=== PATIENT | male | born 1955 | race Caucasian/White ===

== ENCOUNTER 2019-10-21 17:53 | Emergency (ER) | payer BC ==
[2019-10-21] MEDS ORDERED: diphenhydrAMINE 50 MG/ML SDV IVPUSH ONE (18:17)
[2019-10-21] MEDS ORDERED: Lactated Ringers 1,000 ML IV ONE ×2 (18:17→19:15)
[2019-10-21] MEDS ORDERED: Sodium Chloride 0.9% 10 ML Syringe FLUSH PRN (18:17)
[2019-10-21] MEDS ORDERED: Ondansetron 4 MG/2 ML SDV IV ONE (18:17)
[2019-10-21 18:47] LABS: CHLORIDE,CL 101 mmol/L (98-107); SODIUM,NA 140 mmol/L (136-145)
[2019-10-21 18:48] LABS: ANION GAP 23.1 mmol/L (10-20)
--- NOTE | 2019-10-21 19:04 | CR ---
[id number] RAD/RAD Abd Flat and Upright 2V EXAM: RAD Abd Flat and Upright 2V INDICATION: QUESTION CONSTIPATION, NAUSEA, VOMITING. NO STOOL FOR COMPARISON: None. DISCUSSION: Unobstructed bowel gas pattern. No radiographically evident pneumoperitoneum. Moderate colonic stool burden. IMPRESSION: No evidence of a bowel obstruction. Rayshawn Cadena MD 10/21/19 4919 Thank you for allowing us to participate in the care of your patient.
[2019-10-21] MEDS ORDERED: Magnesium Sulfate/Water 2 GM in Premix Bag 1 BAG IV ONE (19:15)
[2019-10-21] MEDS ORDERED: Polyethylene Glycol 3350 Powder 17 GM Packet PO ONE (19:15)
[2019-10-21] MEDS ORDERED: LORazepam 2 MG/ML SDV IVPUSH ONE (19:19)
[2019-10-21] MEDS ORDERED: Bisacodyl 5 MG Tab PO ONE (21:44)
--- NOTE | 2019-10-21 21:44 | EDM.PDOC ---
ED HPI GENERAL MEDICAL PROBLEM - General Chief Complaint: Gastrointestinal Problem Time Seen by Provider: 10/21/19 18:52 Source of Information: Reports: Patient History Limitations: Reports: No Limitations - History of Present Illness INITIAL COMMENTS - FREE TEXT/NARRATIVE: Patient comes emergency department today with complaints of abdominal distention nausea and vomiting. Over the past few days he has noticed that his abdomen has been more distended and bloated sensation. He has not had a bowel movement in 4 days. Today he has had quite a bit of nausea and vomiting and he is thrown up multiple times this morning every 20 minutes he relates. He has been unable to take his quetiapine for his psychiatric disorder and is getting quite anxious. He denies any fever or chills. No chest pain or shortness of breath or difficulty breathing. No fever no chills. No real abdominal pain more distention and discomfort bloating sensation. No hematuria dysuria or urinary frequency. No flank pain. Had a very similar episode of this when he was constipated and ended up with recurrent nausea and vomiting. And he feels that is what is happening today. Lower Abdomen Pain Score (Numeric/FACES): 6 - Related Data Allergies Allergy/AdvReac Type Severity Reaction Status Date / Time No Known Allergies Allergy Verified 10/21/19 18:30 Home Meds: Home Meds ClonazePAM [KlonoPIN] 0.5 mg PO BEDTIME 10/21/19 [History] Magnesium Oxide 400 mg PO DAILY #5 tab 10/21/19 [Rx] Metoprolol Succinate 100 mg PO DAILY 10/21/19 [History] Mirtazapine 30 mg PO BEDTIME 10/21/19 [History] Omeprazole 20 mg PO DAILY 10/21/19 [History] QUEtiapine [SEROquel] 100 mg PO ASDIRECTED 10/21/19 [History] Simvastatin 20 mg PO DAILY 10/21/19 [History] Tamsulosin [Tamsulosin 24 Hr] 0.4 mg PO DAILY 10/21/19 [History] Past Medical History - Past Health History Medical/Surgical History: Denies Medical/Surgical History Cardiovascular History: Reports: High Cholesterol, Hypertension Gastrointestinal History: Reports: GERD Psychiatric History: Reports: Anxiety, Depression Social & Family History - Tobacco Use Smoking Status *Q: Current Every Day Smoker Years of Tobacco use: 40 Packs/Tins Daily: 1 ED ROS GENERAL - Review of Systems Review Of Systems: Comprehensive ROS is negative, except as noted in HPI. ED EXAM, GI/ABD - Physical Exam Exam: See Below Exam Limited By: No Limitations General Appearance: Alert, WD/WN, Anxious Eyes: Bilateral: EOMI Ears: Normal External Exam, Normal TMs Nose: Normal Inspection, Normal Mucosa Throat/Mouth: Normal Inspection, Normal Lips, Normal Teeth, Normal Oropharynx Head: Atraumatic, Normocephalic Neck: Normal Inspection, Supple, Non-Tender. No: Lymphadenopathy (L), Lymphadenopathy (R) Respiratory/Chest: No Respiratory Distress, Lungs Clear, No Accessory Muscle Use , Chest Non-Tender Cardiovascular: Normal Peripheral Pulses, Regular Rate, Rhythm GI/Abdominal Exam: Normal Bowel Sounds, Soft, Non-Tender, Distended (minimally. dullness to percussion throughout the abd. ) Back Exam: Normal Inspection, Full Range of Motion Extremities: Normal Inspection, Non-Tender, Normal Capillary Refill Neurological: Alert, Oriented, Normal Cognition, No Motor/Sensory Deficits Psychiatric: Normal Affect, Normal Mood Skin Exam: Warm, Dry, Intact, Normal Color Course - Vital Signs Last Recorded V/S: Last Vital Signs Temp 37.4 C 10/21/19 17:55 Pulse 67 10/21/19 20:33 Resp 16 10/21/19 20:33 BP 123/71 10/21/19 20:33 Pulse Ox 96 10/21/19 20:33 - Orders/Labs/Meds Orders: Active Orders 24 hr Category Date Time Status Sodium Chloride 0.9% [Saline Flush] Med 10/21/19 18:17 Active 10 ml FLUSH ASDIRECTED PRN Peripheral IV Insertion Adult [OM.PC] Stat Oth 10/21/19 18:16 Ordered Medication Orders Sodium Chloride (Saline Flush) 10 ml FLUSH ASDIRECTED PRN PRN Reason: Keep Vein Open Labs: Laboratory Tests 10/21/19 10/21/19 Range/Units 18:05 18:05 WBC 10.4 H (4.0-10.0) x10^3/uL RBC 5.37 (4.5-6.0) x10^6/uL Hgb 16.8 (14.0-18.0) g/dL Hct 47.6 (40.0-52.0) % MCV 88.6 (78.0-93.0) fL MCH 31.3 (26.0-32.0) pg MCHC 35.3 (32.0-36.0) g/dL RDW Coeff of [place] 14.0 (10.0-15.0) % Plt Count 283 (130-400) x10^3/uL Neut % (Auto) 88.0 H (50.0-80.0) % Lymph % (Auto) 8.5 L (25.0-50.0) % [place] % (Auto) 3.3 (2.0-11.0) % Eos % (Auto) 0.0 (0.0-4.0) % Baso % (Auto) 0.2 (0.2-1.2) % Sodium 140 (136-145) mmol/L Potassium 4.1 (3.5-5.1) mmol/L Chloride 101 (98-107) mmol/L Carbon Dioxide 20 L (21-32) mmol/L Anion Gap 23.1 H (10-20) mmol/L BUN 20 H (7-18) mg/dL Creatinine 1.2 (0.70-1.30) mg/dL Est Cr Clr Drug Dosing TNP Estimated GFR (MDRD) > 60 Glucose 141 H (74-106) mg/dL Calcium 9.4 (8.5-10.1) mg/dL Corrected Calcium 9.08 (8.5-10.1) mg/dL Magnesium 1.6 L (1.8-2.4) mg/dL Total Bilirubin 0.6 (0.2-1.0) mg/dL AST 20 (15-37) U/L ALT 31 (16-63) U/L Alkaline Phosphatase 114 (46-116) U/L C-Reactive Protein 0.7 (<=0.9) mg/dL Total Protein 8.3 H (6.4-8.2) g/dL Albumin 4.4 (3.4-5.0) g/dL Globulin 3.9 Albumin/Globulin Ratio 1.13 Lipase 221 (73-393) U/L Meds: Medications Generic Name Dose Route Start Last Admin Trade Name Freq PRN Reason Stop Dose Admin Sodium Chloride 10 ml 10/21/19 18:17 Saline Flush FLUSH ASDIRECTED PRN Keep Vein Open Discontinued Medications Generic Name Dose Route Start Last Admin Trade Name Freq PRN Reason Stop Dose Admin Bisacodyl 5 mg 10/21/19 21:44 10/21/19 21:53 Dulcolax PO 10/21/19 21:45 5 mg ONETIME ONE Administration Diphenhydramine HCl 50 mg 10/21/19 18:17 10/21/19 18:45 Benadryl IVPUSH 10/21/19 18:18 50 mg ONETIME ONE Administration Lactated Ringer's 1,000 mls @ 999 mls/hr 10/21/19 18:17 10/21/19 18:42 Ringers, Lactated IV 10/21/19 19:17 999 mls/hr ONETIME ONE Administration Lactated Ringer's 1,000 mls @ 500 mls/hr 10/21/19 19:15 10/21/19 19:34 Ringers, Lactated IV 10/21/19 21:14 500 mls/hr ONETIME ONE Administration Magnesium Sulfate 2 gm/ Premix 50 mls @ 25 mls/hr 10/21/19 19:15 10/21/19 19: 42 IV 10/21/19 21:14 25 mls/hr ONETIME ONE Administration Lorazepam 1 mg 10/21/19 19:19 10/21/19 19:30 Ativan IVPUSH 10/21/19 19:20 1 mg STAT ONE Administration Ondansetron HCl 4 mg 10/21/19 18:17 10/21/19 18:43 Zofran IV 10/21/19 18:18 4 mg ONETIME ONE Administration Ondansetron HCl 1 packet 10/21/19 21:49 10/21/19 21:53 Take Home: Ondansetron Odt 4 Mg, 2 Tab Pack PO 10/21/19 21:50 1 packet ONETIME ONE Administration Polyethylene Glycol 34 gm 10/21/19 19:15 10/21/19 19:50 Miralax PO 10/21/19 19:16 34 gm ONETIME ONE Administration - Re-Assessments/Exams Free Text/Narrative Re-Assessment/Exam: 10/21/19 22:49 IV of LR 1 L wide open. Benadryl and Zofran for nausea and diarrhea. X-ray of the abdomen per radiology shows no evidence of bowel obstruction nonobstructive bowel gas pattern. No radiographic evidence of pneumoperitoneum. Moderate colonic stool burden. The patients as he was resolved with the above therapy as well as his abdominal bloating. He still was quite anxious and he was given Ativan with improvement of his symptoms. His labs are pretty unremarkable. His creatinine is at 1.2 most likely due to dehydration. His magnesium is 1.5. He was given a second liter of normal saline at 500 mils an hour. He was also given 2 g of magnesium sulfate. His nausea and vomiting is completely resolved his valerio distention is improved. He was also given a double dose of MiraLAX. And a dose of bisacodyl. Anxiety is resolved he feels much better. Will him go home we will send him home with some Zofran as well. And some home treatment for his constipation he is comfortable with this plan his questions. 10/21/19 22:52 Departure - Departure Time of Disposition: 21:35 Disposition: Home, Self-Care 01 Clinical Impression: Hypomagnesemia Constipation Qualifiers: Constipation type: unspecified constipation type Qualified Code(s): K59.00 - Constipation, unspecified Nausea & vomiting Qualifiers: Vomiting Intractability: unspecified - Discharge Information Prescriptions: Magnesium Oxide 400 mg PO DAILY #5 tab Instructions: Constipation, Adult, [id number], Nausea and Vomiting, Adult, [id number], Dehydration, Elderly, [id number] Referrals: Roman Holguin DO [Primary Care Provider] - Forms: ED Department Discharge Additional Instructions: Push oral fluids as much as possible over the next few days. Miralax, 1 capful with a large glass of water every day, increase by 1 capful every 2 days. Day 3 2 capfuls, day 5 3 capfuls etc until easy smooth bowel movement. Magnesium oxide 400mg by mouth every day for the next 5 days. RX sent to the pharmacy. Recheck magnesium with PCP in the next 5 days if sooner if not improving or worse. Slowly advance diet as tolerated. Return to the ED if new or worsening symptoms. Sepsis Event Note - Evaluation Sepsis Screening Result: No Definite Risk - Focused Exam Vital Signs: Vital Signs Temp Pulse Resp BP Pulse Ox 10/21/19 20:33 67 16 123/71 96 10/21/19 17:55 37.4 C 120 H 20 125/87 97 Date Exam was Performed: 10/21/19 Time Exam was Performed: 22:44 - My Orders Last 24 Hours: My Active Orders 10/21/19 18:16 Peripheral IV Insertion Adult [OM.PC] Stat 10/21/19 18:17 Sodium Chloride 0.9% [Saline Flush] 10 ml FLUSH ASDIRECTED PRN - Assessment/Plan Last 24 Hours: My Active Orders 10/21/19 18:16 Peripheral IV Insertion Adult [OM.PC] Stat 10/21/19 18:17 Sodium Chloride 0.9% [Saline Flush] 10 ml FLUSH ASDIRECTED PRN Assessment:: Nausea vomiting most likely from constipation. constipation. Plan: Push oral fluids as much as possible over the next few days. Miralax, 1 capful with a large glass of water every day, increase by 1 capful every 2 days. Day 3 2 capfuls, day 5 3 capfuls etc until easy smooth bowel movement. Magnesium oxide 400mg by mouth every day for the next 5 days. RX sent to the pharmacy. Recheck magnesium with PCP in the next 5 days if sooner if not improving or worse. Slowly advance diet as tolerated. Return to the ED if new or worsening symptoms.
[2019-10-21] MEDS ORDERED: Take Home: Ondansetron 4 MG Tab.DIS, 2 Tab Pack PO ONE (21:49)
== END 2019-10-21 22:05 | disposition home or self-care (01) ==
LOC: VM.ED 17:53
DX: K59.00 Constipation, unspecified (principal); E83.42 Hypomagnesemia; F17.210 Nicotine dependence, cigarettes, uncomplicated; E78.00 Pure hypercholesterolemia, unspecified; I10 Essential (primary) hypertension; K21.9 Gastro-esophageal reflux disease without esophagitis; F41.9 Anxiety disorder, unspecified; F32.9 Major depressive disorder, single episode, unspecified; Z79.899 Other long term (current) drug therapy
CPT/HCPCS: 74019; 80053; 83690; 83735; 85025; 86140; 96365; 96366; 96375; 99284; A9270; J1200; J2060; J2405; J3475; J7120

== ENCOUNTER 2019-10-22 08:46 | Emergency (ER) | payer BC ==
[2019-10-22] MEDS ORDERED: diphenhydrAMINE 50 MG/ML SDV IVPUSH ONE (09:10)
[2019-10-22] MEDS ORDERED: Sodium Chloride 0.9% 10 ML Syringe FLUSH PRN (09:10)
[2019-10-22] MEDS ORDERED: Ketorolac 30 MG/ML SDV IVPUSH ONE (09:10)
[2019-10-22] MEDS ORDERED: Ondansetron 4 MG/2 ML SDV IV ONE (09:10)
[2019-10-22] MEDS ORDERED: Lactated Ringers 1,000 ML IV ONE (09:10)
--- NOTE | 2019-10-22 09:12 | EDM.PDOC ---
ED HPI GENERAL MEDICAL PROBLEM - General Time Seen by Provider: 10/22/19 09:05 Source of Information: Reports: Patient History Limitations: Reports: No Limitations - History of Present Illness INITIAL COMMENTS - FREE TEXT/NARRATIVE: Patient comes emergency department today with complaints of nausea vomiting and abdominal pain. This patient was seen by myself last night for very similar symptomology. Please see my note from last night as well. Diagnosed with constipation nausea and vomiting which she has had before. He slept well throughout the night and was really asymptomatic. He has not had a bowel movement yet. He woke up this morning he felt pretty good and suddenly he had increased abdominal pain cramping and distention nausea and vomiting at home. No fever no chills. He has been able to keep down his medications. He has no chest pain or shortness of breath or difficulty breathing. No fever no chills. He has been voiding normally. No hematuria dysuria or urinary frequency. - Related Data Allergies Allergy/AdvReac Type Severity Reaction Status Date / Time No Known Allergies Allergy Verified 10/21/19 18:30 Home Meds: Home Meds ClonazePAM [KlonoPIN] 0.5 mg PO BEDTIME 10/21/19 [History] Magnesium Oxide 400 mg PO DAILY #5 tab 10/21/19 [Rx] Metoprolol Succinate 100 mg PO DAILY 10/21/19 [History] Mirtazapine 30 mg PO BEDTIME 10/21/19 [History] Omeprazole 20 mg PO DAILY 10/21/19 [History] QUEtiapine [SEROquel] 100 mg PO ASDIRECTED 10/21/19 [History] Simvastatin 20 mg PO DAILY 10/21/19 [History] Tamsulosin [Tamsulosin 24 Hr] 0.4 mg PO DAILY 10/21/19 [History] Past Medical History - Past Health History Medical/Surgical History: Denies Medical/Surgical History Cardiovascular History: Reports: High Cholesterol, Hypertension Gastrointestinal History: Reports: GERD Psychiatric History: Reports: Anxiety, Depression ED ROS GENERAL - Review of Systems Review Of Systems: Comprehensive ROS is negative, except as noted in HPI. ED EXAM, GI/ABD - Physical Exam Exam: See Below Text/Narrative:: He is rolling about the bed moaning Exam Limited By: No Limitations General Appearance: Alert, Mild Distress Eyes: Bilateral: EOMI Throat/Mouth: Normal Inspection, Normal Lips, Normal Oropharynx Head: Atraumatic, Normocephalic Neck: Normal Inspection, Supple, Non-Tender Respiratory/Chest: No Respiratory Distress, Lungs Clear, Normal Breath Sounds, No Accessory Muscle Use Cardiovascular: Normal Peripheral Pulses, Regular Rate, Rhythm GI/Abdominal Exam: Soft, No Organomegaly, Tender (Generalized tenderness without rebound guarding or rigidity. Minimally distended. Dullness to percussion throughout the abdomen). No: Normal Bowel Sounds (Decreased bowel sounds throughout) Back Exam: Normal Inspection, Full Range of Motion Extremities: Normal Inspection, Normal Range of Motion, No Pedal Edema, Normal Capillary Refill Neurological: Alert, Oriented, Normal Cognition, No Motor/Sensory Deficits Psychiatric: Normal Affect Skin Exam: Warm, Dry, Intact, Normal Color Course - Orders/Labs/Meds Orders: Active Orders 24 hr Category Date Time Status Enema [RC] ASDIRECTED Care 10/22/19 09:31 Active UA RFX LAYTON AND CULT IF INDIC [URIN] Stat Lab 10/22/19 09:09 Ordered Sodium Chloride 0.9% [Saline Flush] Med 10/22/19 09:10 Active 10 ml FLUSH ASDIRECTED PRN polyethylene glycoL 3350 [MiraLAX] Med 10/22/19 13:36 Once 34 gm PO ONETIME ONE Peripheral IV Insertion Adult [OM.PC] Stat Oth 10/22/19 09:09 Ordered Medication Orders Polyethylene Glycol (Miralax) 34 gm PO ONETIME ONE Stop: 10/22/19 13:37 Sodium Chloride (Saline Flush) 10 ml FLUSH ASDIRECTED PRN PRN Reason: Keep Vein Open Labs: Laboratory Tests 10/22/19 10/22/19 10/22/19 Range/Units 09:27 09:27 09:27 WBC 15.9 H (4.0-10.0) x10^3/uL RBC 5.07 (4.5-6.0) x10^6/uL Hgb 16.0 (14.0-18.0) g/dL Hct 45.6 (40.0-52.0) % MCV 89.9 (78.0-93.0) fL MCH 31.6 (26.0-32.0) pg MCHC 35.1 (32.0-36.0) g/dL RDW Coeff of [place] 14.3 (10.0-15.0) % Plt Count 260 (130-400) x10^3/uL Neut % (Auto) 79.7 (50.0-80.0) % Lymph % (Auto) 10.5 L (25.0-50.0) % [place] % (Auto) 9.2 (2.0-11.0) % Eos % (Auto) 0.4 (0.0-4.0) % Baso % (Auto) 0.2 (0.2-1.2) % Sodium 144 (136-145) mmol/L Potassium 3.9 (3.5-5.1) mmol/L Chloride 106 (98-107) mmol/L Carbon Dioxide 22 (21-32) mmol/L Anion Gap 19.9 (10-20) mmol/L BUN 16 (7-18) mg/dL Creatinine 1.3 (0.70-1.30) mg/dL Est Cr Clr Drug Dosing TNP Estimated GFR (MDRD) 56 Glucose 128 H (74-106) mg/dL Lactic Acid 2.3 H* (0.4-2.0) mmol/L Calcium 9.0 (8.5-10.1) mg/dL Corrected Calcium 9.08 (8.5-10.1) mg/dL Total Bilirubin 0.6 (0.2-1.0) mg/dL AST 23 (15-37) U/L ALT 29 (16-63) U/L Alkaline Phosphatase 101 (46-116) U/L C-Reactive Protein 0.6 (<=0.9) mg/dL Total Protein 7.5 (6.4-8.2) g/dL Albumin 3.9 (3.4-5.0) g/dL Globulin 3.6 Albumin/Globulin Ratio 1.08 Meds: Medications Generic Name Dose Route Start Last Admin Trade Name Freq PRN Reason Stop Dose Admin Polyethylene Glycol 34 gm 10/22/19 13:36 Miralax PO 10/22/19 13:37 ONETIME ONE Sodium Chloride 10 ml 10/22/19 09:10 Saline Flush FLUSH ASDIRECTED PRN Keep Vein Open Discontinued Medications Generic Name Dose Route Start Last Admin Trade Name Freq PRN Reason Stop Dose Admin Diphenhydramine HCl 50 mg 10/22/19 09:10 10/22/19 09:30 Benadryl IVPUSH 10/22/19 09:11 50 mg ONETIME ONE Administration Hydromorphone HCl 1 mg 10/22/19 12:07 10/22/19 12:13 Dilaudid IVPUSH 10/22/19 12:08 1 mg ONETIME ONE Administration Lactated Ringer's 1,000 mls @ 999 mls/hr 10/22/19 09:10 10/22/19 09:40 Ringers, Lactated IV 10/22/19 10:10 999 mls/hr ONETIME ONE Administration Iopamidol 100 ml 10/22/19 12:37 10/22/19 12:48 Isovue-300 (61%) IVPUSH 10/22/19 12:38 100 ml ONETIME ONE Administration Ketorolac Tromethamine 30 mg 10/22/19 09:10 10/22/19 09:38 Toradol IVPUSH 10/22/19 09:11 30 mg ONETIME ONE Administration Magnesium Hydroxide 30 ml 10/22/19 11:17 10/22/19 11:25 Milk Of Magnesia PO 10/22/19 11:18 30 ml ONETIME ONE Administration Ondansetron HCl 4 mg 10/22/19 09:10 10/22/19 09:35 Zofran IV 10/22/19 09:11 4 mg ONETIME ONE Administration Ondansetron HCl 4 mg 10/22/19 12:07 10/22/19 12:14 Zofran IVPUSH 10/22/19 12:08 4 mg ONETIME ONE Administration - Radiology Interpretation Free Text/Narrative:: Because the patient's pain worsened while he was in the emergency department and we had no results with an enema. CT scan abdomen pelvis. Per radiology no acute findings. - Re-Assessments/Exams Free Text/Narrative Re-Assessment/Exam: 10/22/19 13:38 Patient was initially given IV hydration as well as Benadryl Zofran for pain. Attempted a soapsuds enema without any results. He was also given milk of mag and warm prune juice orally. Labs once again are fairly unremarkable. Patient had increasing pain nausea and vomiting while in the emergency department. He was given Zofran and Dilaudid. We completed a CT scan of the abdomen which was negative. Following the CT scan the patient did start moving his bowels and he feels much better. His nausea and vomiting resolved. HE feels much better. His stomach is not as distended. Bowel sounds are more prominent now. Will give another dose fo Miralax and also some Lactulose. Continue to push fluids orally and the miralax. The patient was comfortable with this plan and his questions answered. 10/22/19 13:47 Departure - Departure Time of Disposition: 13:44 Disposition: Home, Self-Care 01 Clinical Impression: Constipation Qualifiers: Constipation type: unspecified constipation type Qualified Code(s): K59.00 - Constipation, unspecified Nausea & vomiting Qualifiers: Vomiting Intractability: unspecified - Discharge Information Instructions: Constipation, Adult, [id number], Nausea and Vomiting, Adult, [id number] Referrals: Roman Holguin DO [Primary Care Provider] - Additional Instructions: Continue to push fluids tonight. Take another 2 capfulls of miralax tonight after dinner. Then 2 capfuls daily until easy smooth bowel movement. Return if new or worsening symptoms. Follow up with PCP in the next 4-6 days if not improving sooner if worse. Sepsis Event Note - Focused Exam Date Exam was Performed: 10/22/19 Time Exam was Performed: 13:37 - My Orders Last 24 Hours: My Active Orders 10/22/19 09:09 UA RFX LAYTON AND CULT IF INDIC [URIN] Stat Peripheral IV Insertion Adult [OM.PC] Stat 10/22/19 09:10 Sodium Chloride 0.9% [Saline Flush] 10 ml FLUSH ASDIRECTED PRN 10/22/19 09:31 Enema [RC] ASDIRECTED 10/22/19 13:36 polyethylene glycoL 3350 [MiraLAX] 34 gm PO ONETIME ONE - Assessment/Plan Last 24 Hours: My Active Orders 10/22/19 09:09 UA RFX LAYTON AND CULT IF INDIC [URIN] Stat Peripheral IV Insertion Adult [OM.PC] Stat 10/22/19 09:10 Sodium Chloride 0.9% [Saline Flush] 10 ml FLUSH ASDIRECTED PRN 10/22/19 09:31 Enema [RC] ASDIRECTED 10/22/19 13:36 polyethylene glycoL 3350 [MiraLAX] 34 gm PO ONETIME ONE Assessment:: Constipation N/D Plan: Continue to push fluids tonight. Take another 2 capfulls of miralax tonight after dinner. Then 2 capfuls daily until easy smooth bowel movement. Return if new or worsening symptoms. Follow up with PCP in the next 4-6 days if not improving sooner if worse.
[2019-10-22 09:53] LABS: CHLORIDE,CL 106 mmol/L (98-107); SODIUM,NA 144 mmol/L (136-145)
[2019-10-22 09:54] LABS: ANION GAP 19.9 mmol/L (10-20)
[2019-10-22] MEDS ORDERED: Magnesium Hydroxide 400 MG/5 ML Susp 30 ML Cup PO ONE (11:17)
[2019-10-22] MEDS ORDERED: Ondansetron 4 MG/2 ML SDV IVPUSH ONE (12:07)
[2019-10-22] MEDS ORDERED: HYDROmorphone 1 MG/ML Syringe IVPUSH ONE (12:07)
[2019-10-22] MEDS ORDERED: Iopamidol 612 MG/ML 100 ML Bottle IVPUSH ONE (12:37)
--- NOTE | 2019-10-22 13:30 | CT ---
[id number] CT/CT Abdomen Pelvis W IV EXAM: ABDOMEN AND PELVIS CT WITH CONTRAST INDICATION: SEVERE ABDOMEN PAIN NOT IMPROVED AFTER LAST VISIT. COMPARISON: None. DISCUSSION: There is atherosclerotic plaque scattered throughout the aorta and its major branches. Significant stenosis is suggested of the left common iliac artery which could be further evaluated with CT angiogram if there is clinical evidence of stenosis. Small fat-containing bilateral inguinal hernias. Scattered colonic diverticula without evidence of diverticulitis. There are multiple fluid-filled mildly ectatic small bowel loops likely related to recent fluid ingestion as there is fluid within the stomach. No transition point or other findings to suggest bowel obstruction. The left adrenal gland contains a couple of nodules which are indeterminate by density the largest 23 x 18 mm. Small sliding type hiatus hernia. The liver, gallbladder, spleen, pancreas, right adrenal gland, and both kidneys are normal in appearance. The appendix is not definitely seen, but there are no changes to suggest acute appendicitis. IMPRESSION: 1. No acute findings. Van Bray MD 10/22/19 0929 Thank you for allowing us to participate in the care of your patient.
[2019-10-22] MEDS ORDERED: Polyethylene Glycol 3350 Powder 17 GM Packet PO ONE (13:36)
[2019-10-22] MEDS ORDERED: Lactulose Soln 10 GM/15 ML 30 ML UD Cup PO ONE (13:44)
[2019-10-22] MEDS ORDERED: Lactulose Soln 10 GM/15 ML 15 ML UD Cup PO ONE (14:04)
== END 2019-10-22 14:10 | disposition home or self-care (01) ==
LOC: VM.ED 08:46
DX: K59.00 Constipation, unspecified (principal); R11.2 Nausea with vomiting, unspecified; I10 Essential (primary) hypertension; E78.00 Pure hypercholesterolemia, unspecified; F41.9 Anxiety disorder, unspecified; F32.9 Major depressive disorder, single episode, unspecified; K21.9 Gastro-esophageal reflux disease without esophagitis; Z79.899 Other long term (current) drug therapy
CPT/HCPCS: 36415; 74177; 80053; 83605; 85025; 86140; 96361; 96374; 96375; 96376; 99284-25; A9270-GY; J1170; J1200; J1885; J2405; J7120; Q9967

== ENCOUNTER 2019-10-24 12:00 | Emergency (ER) | payer BC ==
[2019-10-24] MEDS ORDERED: Sodium Chloride 0.9% 1,000 ML IV ONE ×2 (12:14→13:18)
[2019-10-24] MEDS ORDERED: Ondansetron 4 MG/2 ML SDV IVPUSH ONE (12:14)
[2019-10-24] MEDS ORDERED: LORazepam 2 MG/ML SDV IVPUSH ONE ×3 (12:15→15:39)
[2019-10-24] MEDS: Sodium Chloride 0.9% 10 ML Syringe FLUSH PRN ×2 (12:22→13:54)
--- NOTE | 2019-10-24 12:34 | EDM.PDOC ---
ED HPI GENERAL MEDICAL PROBLEM - General Chief Complaint: Abdominal Pain Time Seen by Provider: 10/24/19 12:15 Source of Information: Reports: Patient History Limitations: Reports: No Limitations - History of Present Illness INITIAL COMMENTS - FREE TEXT/NARRATIVE: Pt. presents to ER with complaints of nausea x 2 and one loose stool today. Pt. was seen in ER earlier this week by BENJAMIN Gao with similar symptoms. Pt. underwent plain film radiographs of the abdomen and pelvis as well as CT of the abdomen and pelvis. There was no evidence of perforation, obstruction or other pathology, other than constipation. He has been started on miralax and now his stools are much more loose. Pt. required numerous antiemetics, ativan, dilaudid and fluids on his previous visits. He states that he is on seroquel and he feels that a large component of his symptoms have to do with anxiety and not being able to take his seroquel today. Pt. denies any fever or chills. No chest pain or shortness of breath. No rashes. Denies any blood in his stool. He has not been experiencing any cough of congestion. No flank pain. No dysuria. Pt. states that he is a frequent marijuana user. He states that he uses this to control his colitis symptoms and states that it improved his appetite and helps with his nausea. Pt. states that he has had problems with severe nausea and vomiting in the past, and states that he has been seen by GI for this, but has never been formally diagnosed with a cause. Pt. states that he has "scopes" every 2 years and is followed by gastroenterology. Onset: Today Location: Reports: Abdomen - Related Data Allergies Allergy/AdvReac Type Severity Reaction Status Date / Time No Known Allergies Allergy Verified 10/24/19 12:04 Home Meds: Home Meds ClonazePAM [KlonoPIN] 0.5 mg PO BEDTIME 10/21/19 [History] Magnesium Oxide 400 mg PO DAILY #5 tab 10/21/19 [Rx] Metoprolol Succinate 100 mg PO DAILY 10/21/19 [History] Mirtazapine 30 mg PO BEDTIME 10/21/19 [History] Omeprazole 20 mg PO DAILY 10/21/19 [History] QUEtiapine [SEROquel] 100 mg PO ASDIRECTED 10/21/19 [History] Simvastatin 20 mg PO DAILY 10/21/19 [History] Tamsulosin [Tamsulosin 24 Hr] 0.4 mg PO DAILY 10/21/19 [History] Past Medical History - Past Health History Medical/Surgical History: Denies Medical/Surgical History Cardiovascular History: Reports: High Cholesterol, Hypertension Gastrointestinal History: Reports: GERD Psychiatric History: Reports: Anxiety, Depression ED ROS GENERAL - Review of Systems Review Of Systems: See Below Constitutional: Reports: No Symptoms HEENT: Reports: No Symptoms Respiratory: Reports: No Symptoms Cardiovascular: Reports: No Symptoms Endocrine: Reports: No Symptoms GI/Abdominal: Reports: Abdominal Pain, Nausea, Vomiting : Reports: No Symptoms Musculoskeletal: Reports: No Symptoms Skin: Reports: No Symptoms Neurological: Reports: No Symptoms Psychiatric: Reports: Agitation, Anxiety, Depression Hematologic/Lymphatic: Reports: No Symptoms Immunologic: Reports: No Symptoms ED EXAM, GENERAL - Physical Exam Exam: See Below Exam Limited By: No Limitations General Appearance: Alert, WD/WN, No Apparent Distress Eye Exam: Bilateral Eye: EOMI, PERRL Nose: Normal Inspection, Normal Mucosa, No Blood Throat/Mouth: Normal Inspection, Normal Lips, Normal Teeth, Normal Gums, Normal Oropharynx, Normal Voice, No Airway Compromise Head: Atraumatic, Normocephalic Neck: Normal Inspection, Supple, Non-Tender, Full Range of Motion Respiratory/Chest: No Respiratory Distress, Lungs Clear, Normal Breath Sounds, No Accessory Muscle Use, Chest Non-Tender Cardiovascular: Normal Peripheral Pulses, Regular Rate, Rhythm, No Edema, No Gallop, No JVD, No Murmur, No Rub GI/Abdominal: Soft, Non-Tender, No Organomegaly, No Distention, No Mass (Male) Exam: Deferred Rectal (Males) Exam: Deferred Back Exam: Normal Inspection, Full Range of Motion Extremities: Normal Inspection, Normal Range of Motion, Non-Tender, No Pedal Edema, Normal Capillary Refill Neurological: Alert, Oriented, CN II-XII Intact, Normal Cognition, Normal Gait, Normal Reflexes, No Motor/Sensory Deficits Psychiatric: Anxious, Tearful Skin Exam: Warm, Dry, Intact, Normal Color, No Rash Lymphatic: No Adenopathy Course - Vital Signs Last Recorded V/S: Last Vital Signs Temp 35.5 C L 10/24/19 12:06 Pulse 64 10/24/19 17:18 Resp 14 10/24/19 17:18 BP 178/84 H 10/24/19 17:18 Pulse Ox 96 10/24/19 17:18 - Orders/Labs/Meds Orders: Active Orders 24 hr Category Date Time Status UA W/MICROSCOPIC [URIN] Stat Lab 10/24/19 14:07 Results Sodium Chloride 0.9% [Saline Flush] Med 10/24/19 12:14 Active 10 ml FLUSH ASDIRECTED PRN Peripheral IV Insertion Adult [OM.PC] Routine Oth 10/24/19 12:15 Ordered Medication Orders Sodium Chloride (Saline Flush) 10 ml FLUSH ASDIRECTED PRN PRN Reason: Keep Vein Open Last Admin: 10/24/19 13:54 Dose: 10 ml Admin: 10/24/19 12:22 Dose: 10 ml Labs: Laboratory Tests 10/24/19 10/24/19 10/24/19 Range/Units 12:25 12:25 12:25 WBC 14.1 H (4.0-10.0) x10^3/uL RBC 5.23 (4.5-6.0) x10^6/uL Hgb 16.6 (14.0-18.0) g/dL Hct 47.1 (40.0-52.0) % MCV 90.1 (78.0-93.0) fL MCH 31.7 (26.0-32.0) pg MCHC 35.2 (32.0-36.0) g/dL RDW Coeff of Sawyer 13.8 (10.0-15.0) % Plt Count 276 (130-400) x10^3/uL Neut % (Auto) 71.2 (50.0-80.0) % Lymph % (Auto) 16.3 L (25.0-50.0) % Sanders % (Auto) 11.2 H (2.0-11.0) % Eos % (Auto) 1.0 (0.0-4.0) % Baso % (Auto) 0.3 (0.2-1.2) % PT 10.5 (10.0-12.8) SEC INR 0.9 L (2.0-3.5) Sodium 141 (136-145) mmol/L Potassium 4.1 (3.5-5.1) mmol/L Chloride 103 (98-107) mmol/L Carbon Dioxide 24 (21-32) mmol/L Anion Gap 18.1 (10-20) mmol/L BUN 16 (7-18) mg/dL Creatinine 1.3 (0.70-1.30) mg/dL Est Cr Clr Drug Dosing 49.94 mL/min Estimated GFR (MDRD) 56 Glucose 106 (74-106) mg/dL Calcium 9.0 (8.5-10.1) mg/dL Corrected Calcium 9.00 (8.5-10.1) mg/dL Total Bilirubin 0.6 (0.2-1.0) mg/dL AST 28 (15-37) U/L ALT 32 (16-63) U/L Alkaline Phosphatase 103 (46-116) U/L C-Reactive Protein 0.6 (<=0.9) mg/dL Total Protein 7.6 (6.4-8.2) g/dL Albumin 4.0 (3.4-5.0) g/dL Globulin 3.6 Albumin/Globulin Ratio 1.11 Amylase 66 (25-115) U/L Lipase 293 (73-393) U/L Urine Color (YELLOW) Urine Appearance (CLEAR) Urine pH (5.0-8.0) Ur Specific [place] Urine Protein (NEGATIVE) mg/dL Urine Glucose (UA) (NEGATIVE) mg/dL Urine Ketones (NEGATIVE) mg/dL Urine Occult Blood (NEGATIVE) Urine Nitrite (NEGATIVE) Urine Bilirubin (NEGATIVE) Urine Urobilinogen (0.2) EU/dL Ur Leukocyte Esterase (NEGATIVE) Urine RBC (NOT SEEN) /HPF Urine WBC (NOT SEEN) /HPF Ur Squamous Epith Cells (NEGATIVE) /HPF Urine Bacteria (NEGATIVE) /HPF Urine Mucus (NEGATIVE) /LPF Urine Opiates Screen (NEAGTIVE) Ur Buprenorphine Scrn (NEGATIVE) Ur Oxycodone Screen (NEGATIVE) Ur EDDP (Meth Metab) (NEGATIVE) Urine Methadone Screen (NEGATIVE) Ur Barbiturates Screen (NEGATIVE) Ur Tricyclics Screen (NEGATIVE) Ur Phencyclidine Scrn (NEGATIVE) Ur Amphetamine Screen (NEGATIVE) U Methamphetamines Scrn (NEGATIVE) Urine MDMA Screen (NEGATIVE) U Benzodiazepines Scrn (NEGATIVE) U Cocaine Metab Screen (NEGATIVE) U Marijuana (THC) Screen (NEGATIVE) 10/24/19 10/24/19 Range/Units 14:07 14:07 WBC (4.0-10.0) x10^3/uL RBC (4.5-6.0) x10^6/uL Hgb (14.0-18.0) g/dL Hct (40.0-52.0) % MCV (78.0-93.0) fL MCH (26.0-32.0) pg MCHC (32.0-36.0) g/dL RDW Coeff of Sawyer (10.0-15.0) % Plt Count (130-400) x10^3/uL Neut % (Auto) (50.0-80.0) % Lymph % (Auto) (25.0-50.0) % Sanders % (Auto) (2.0-11.0) % Eos % (Auto) (0.0-4.0) % Baso % (Auto) (0.2-1.2) % PT (10.0-12.8) SEC INR (2.0-3.5) Sodium (136-145) mmol/L Potassium (3.5-5.1) mmol/L Chloride (98-107) mmol/L Carbon Dioxide (21-32) mmol/L Anion Gap (10-20) mmol/L BUN (7-18) mg/dL Creatinine (0.70-1.30) mg/dL Est Cr Clr Drug Dosing mL/min Estimated GFR (MDRD) Glucose (74-106) mg/dL Calcium (8.5-10.1) mg/dL Corrected Calcium (8.5-10.1) mg/dL Total Bilirubin (0.2-1.0) mg/dL AST (15-37) U/L ALT (16-63) U/L Alkaline Phosphatase (46-116) U/L C-Reactive Protein (<=0.9) mg/dL Total Protein (6.4-8.2) g/dL Albumin (3.4-5.0) g/dL Globulin Albumin/Globulin Ratio Amylase (25-115) U/L Lipase (73-393) U/L Urine Color Yellow (YELLOW) Urine Appearance Clear (CLEAR) Urine pH 7.0 (5.0-8.0) Ur Specific [place] 1.020 Urine Protein Negative (NEGATIVE) mg/dL Urine Glucose (UA) Negative (NEGATIVE) mg/dL Urine Ketones Trace H (NEGATIVE) mg/dL Urine Occult Blood Trace-intact H (NEGATIVE) Urine Nitrite Negative (NEGATIVE) Urine Bilirubin Negative (NEGATIVE) Urine Urobilinogen 0.2 (0.2) EU/dL Ur Leukocyte Esterase Negative (NEGATIVE) Urine RBC 5-10 H (NOT SEEN) /HPF Urine WBC 0-5 (NOT SEEN) /HPF Ur Squamous Epith Cells Not seen (NEGATIVE) /HPF Urine Bacteria Rare (NEGATIVE) /HPF Urine Mucus Rare H (NEGATIVE) /LPF Urine Opiates Screen Negative (NEAGTIVE) Ur Buprenorphine Scrn Negative (NEGATIVE) Ur Oxycodone Screen Negative (NEGATIVE) Ur EDDP (Meth Metab) Negative (NEGATIVE) Urine Methadone Screen Negative (NEGATIVE) Ur Barbiturates Screen Negative (NEGATIVE) Ur Tricyclics Screen Negative (NEGATIVE) Ur Phencyclidine Scrn Negative (NEGATIVE) Ur Amphetamine Screen Negative (NEGATIVE) U Methamphetamines Scrn Negative (NEGATIVE) Urine MDMA Screen Negative (NEGATIVE) U Benzodiazepines Scrn Negative (NEGATIVE) U Cocaine Metab Screen Negative (NEGATIVE) U Marijuana (THC) Screen Positive H (NEGATIVE) Meds: Medications Generic Name Dose Route Start Last Admin Trade Name Freq PRN Reason Stop Dose Admin Sodium Chloride 10 ml 10/24/19 12:14 10/24/19 13:54 Saline Flush FLUSH 10 ml ASDIRECTED PRN Administration Keep Vein Open Discontinued Medications Generic Name Dose Route Start Last Admin Trade Name Freq PRN Reason Stop Dose Admin Diphenhydramine HCl 50 mg 10/24/19 12:59 10/24/19 13:05 Benadryl IVPUSH 10/24/19 13:00 50 mg ONETIME ONE Administration Sodium Chloride 1,000 mls @ 1,000 mls/hr 10/24/19 12:14 10/24/19 12:18 Normal Saline IV 10/24/19 13:13 1,000 mls/hr .BOLUS ONE Administration Sodium Chloride 1,000 mls @ 1,000 mls/hr 10/24/19 13:18 10/24/19 13:22 Normal Saline IV 10/24/19 14:17 1,000 mls/hr .BOLUS ONE Administration Ketorolac Tromethamine 15 mg 10/24/19 13:45 10/24/19 13:55 Toradol IVPUSH 10/24/19 13:46 15 mg ONETIME ONE Administration Lorazepam 1 mg 10/24/19 12:15 10/24/19 12:28 Ativan IVPUSH 10/24/19 12:16 1 mg STAT ONE Administration Lorazepam 1 mg 10/24/19 13:45 10/24/19 13:50 Ativan IVPUSH 10/24/19 13:46 1 mg STAT ONE Administration Lorazepam 2 mg 10/24/19 15:39 10/24/19 15:46 Ativan IVPUSH 10/24/19 15:40 2 mg STAT ONE Administration Ondansetron HCl 4 mg 10/24/19 12:14 10/24/19 12:19 Zofran IVPUSH 10/24/19 12:15 4 mg ONETIME ONE Administration Ondansetron HCl 2 packet 10/24/19 17:18 10/24/19 17:27 Take Home: Ondansetron Odt 4 Mg, 2 Tab Pack PO 10/24/19 17:19 2 packet ONETIME ONE Administration Prochlorperazine Edisylate 5 mg 10/24/19 12:58 10/24/19 13:11 Compazine IV 10/24/19 12:59 5 mg ONETIME ONE Administration Prochlorperazine Edisylate 5 mg 10/24/19 15:40 10/24/19 15:54 Compazine IV 10/24/19 15:41 5 mg ONETIME ONE Administration Sumatriptan Succinate 6 mg 10/24/19 13:44 10/24/19 13:58 Imitrex SUBCUT 10/24/19 13:45 6 mg ONETIME ONE Administration Departure - Departure Time of Disposition: 17:28 Disposition: Home, Self-Care 01 Clinical Impression: Cannabinoid hyperemesis syndrome - Discharge Information Instructions: Cannabis Use Disorder Referrals: Roman Holguin DO [Primary Care Provider] - Forms: ED Department Discharge Additional Instructions: The likely cause of your symptoms is cannabis hyperemesis syndrome. Please abstain from using marjuana. Follow-up with your PCP next week. Zofran 4mg ODT 1 every 6 hours as needed for continued nausea/vomiting. Continue with current medications Sepsis Event Note - Evaluation Sepsis Screening Result: No Definite Risk - Focused Exam Vital Signs: Vital Signs Temp Pulse Resp BP Pulse Ox 10/24/19 17:18 64 14 178/84 H 96 10/24/19 16:10 53 L 14 162/78 H 91 L 10/24/19 15:52 53 L 14 164/89 H 97 10/24/19 14:38 59 L 18 167/93 H 98 10/24/19 14:15 59 L 18 187/101 H 96 10/24/19 13:40 60 18 189/95 H 99 10/24/19 13:29 59 L 22 H 174/97 H 97 10/24/19 12:06 35.5 C L 59 L 26 H 191/97 H 97 Date Exam was Performed: 10/24/19 Time Exam was Performed: 17:28 - My Orders Last 24 Hours: My Active Orders 10/24/19 12:14 Sodium Chloride 0.9% [Saline Flush] 10 ml FLUSH ASDIRECTED PRN 10/24/19 12:15 Peripheral IV Insertion Adult [OM.PC] Routine 10/24/19 14:07 UA W/MICROSCOPIC [URIN] Stat - Assessment/Plan Last 24 Hours: My Active Orders 10/24/19 12:14 Sodium Chloride 0.9% [Saline Flush] 10 ml FLUSH ASDIRECTED PRN 10/24/19 12:15 Peripheral IV Insertion Adult [OM.PC] Routine 10/24/19 14:07 UA W/MICROSCOPIC [URIN] Stat
[2019-10-24] MEDS ORDERED: Prochlorperazine 10 MG/2 ML SDV IV ONE ×2 (12:58→15:40)
[2019-10-24] MEDS ORDERED: diphenhydrAMINE 50 MG/ML SDV IVPUSH ONE (12:59)
[2019-10-24 13:12] LABS: ANION GAP 18.1 mmol/L (10-20)
[2019-10-24] MEDS ORDERED: SUMAtriptan 6 MG/0.5 ML SDV SUBCUT ONE (13:44)
[2019-10-24] MEDS ORDERED: Ketorolac 15 MG/ML SDV IVPUSH ONE (13:45)
[2019-10-24 14:27] LABS: BARBITURATE SCREEN,URINE NEGATIVE (NEGATIVE); BENZODIAZEPINES SCREEN,URINE NEGATIVE (NEGATIVE); EDDP,URINE SCREEN NEGATIVE (NEGATIVE); METHAMPHETAMINE SCREEN, URINE NEGATIVE (NEGATIVE); TCA SCREEN,URINE NEGATIVE (NEGATIVE); THC SCREEN,URINE 50 NG/ML POSITIVE (NEGATIVE)
[2019-10-24] MEDS ORDERED: Take Home: Ondansetron 4 MG Tab.DIS, 2 Tab Pack PO ONE (17:18)
== END 2019-10-24 17:35 | disposition home or self-care (01) ==
LOC: VM.ED 12:00
DX: F12.19 Cannabis abuse with unspecified cannabis-induced disorder (principal); R11.10 Vomiting, unspecified; I10 Essential (primary) hypertension; Z79.899 Other long term (current) drug therapy
CPT/HCPCS: 36415; 80053; 80305-QW; 81001; 82150; 83690; 85025; 85610; 86140; 96361; 96372; 96374; 96375; 96376; 99284-25; A9270-GY; J0780; J1200; J1885; J2060; J2405; J3030; J7030

== ENCOUNTER 2019-11-02 13:53 | Emergency (ER) | payer BC ==
[2019-11-02] MEDS ORDERED: Sodium Chloride 0.9% 10 ML Syringe FLUSH PRN (14:20)
[2019-11-02] MEDS ORDERED: Nitroglycerin 0.4 MG Tab.SL SL PRN (14:20)
[2019-11-02] MEDS ORDERED: Aspirin 81 MG Tab.Chew PO ONE (14:20)
--- NOTE | 2019-11-02 14:26 | EDM.PDOC ---
ED HPI GENERAL MEDICAL PROBLEM - General Chief Complaint: Chest Pain Time Seen by Provider: 11/02/19 14:15 Source of Information: Reports: Patient History Limitations: Reports: No Limitations - History of Present Illness INITIAL COMMENTS - FREE TEXT/NARRATIVE: Patient comes emergency department today with complaints of chest pain and heart pounding. I actually saw this patient twice about a week and a half ago for constipation and abdominal pain and distention which is resolved. Over the past 2 to 3 days he has noticed that with any physical activity has heart problems much more than it typically would. He gets sweaty and diaphoretic with it. And he has an achiness to his chest. The achiness does not radiate other than midsternally and questionably up his neck. He has had increasing night sweats. He has been woken up the past few nights with a pounding heart sensation. This does not feel like his typical anxiety symptoms. He also complains of some generalized malaise and fatigue. Syncope other than today when his heart was pounding so hard that he felt like he was going to pass out. He did not check his pulse at that time. He has had no fever chills no nausea no vomiting no diarrhea. No weakness or dizziness or vertigo. No cough or congestion. No headache. He does not relate any shortness of breath with physical activity. Today when he was taking a nap he had a sudden sharp shooting pain midsternally. This resolved after just a couple of seconds but he continues to have an achiness sensation to his chest. - Related Data Allergies Allergy/AdvReac Type Severity Reaction Status Date / Time No Known Allergies Allergy Verified 11/02/19 14:10 Home Meds: Home Meds ClonazePAM [KlonoPIN] 0.5 mg PO BEDTIME 10/21/19 [History] Magnesium Oxide 400 mg PO DAILY #5 tab 10/21/19 [Rx] Metoprolol Succinate 100 mg PO DAILY 10/21/19 [History] Mirtazapine 30 mg PO BEDTIME 10/21/19 [History] Omeprazole 20 mg PO DAILY 10/21/19 [History] QUEtiapine [SEROquel] 100 mg PO ASDIRECTED 10/21/19 [History] Simvastatin 20 mg PO DAILY 10/21/19 [History] Tamsulosin [Tamsulosin 24 Hr] 0.4 mg PO DAILY 10/21/19 [History] Past Medical History - Past Health History Medical/Surgical History: Denies Medical/Surgical History Cardiovascular History: Reports: High Cholesterol, Hypertension Gastrointestinal History: Reports: GERD Psychiatric History: Reports: Anxiety, Depression Social & Family History - Tobacco Use Smoking Status *Q: Current Status Unknown ED ROS GENERAL - Review of Systems Review Of Systems: Comprehensive ROS is negative, except as noted in HPI. ED EXAM, GENERAL - Physical Exam Exam: See Below Exam Limited By: No Limitations General Appearance: Anxious Eye Exam: Bilateral Eye: EOMI, Normal Inspection Ears: Normal External Exam, Normal Canal, Normal TMs Nose: Normal Inspection Throat/Mouth: Normal Inspection, Normal Lips, Normal Oropharynx Head: Atraumatic, Normocephalic Neck: Normal Inspection, Supple, Non-Tender Respiratory/Chest: No Respiratory Distress, Lungs Clear, Normal Breath Sounds, No Accessory Muscle Use, Chest Non-Tender Cardiovascular: Normal Peripheral Pulses, Regular Rate, Rhythm, No Edema, No Murmur Peripheral Pulses: 2+: Radial (L), Radial (R), Posterior Tibial (L), Posterior Tibial (R), Dorsalis Pedis (L), Dorsalis Pedis (R) GI/Abdominal: Normal Bowel Sounds, Soft, Non-Tender, No Organomegaly, No Distention (Male) Exam: Deferred Rectal (Males) Exam: Deferred Back Exam: Normal Inspection, Full Range of Motion Extremities: Normal Inspection, Normal Range of Motion, Non-Tender, No Pedal Edema, Normal Capillary Refill Neurological: Alert, Oriented, Normal Cognition, No Motor/Sensory Deficits Psychiatric: Anxious Skin Exam: Warm, Dry, Intact, Normal Color Lymphatic: No Adenopathy EKG INTERPRETATION EKG Date: 11/02/19 Time: 13:56 Rhythm: NSR Rate (Beats/Min): 61 [place]: Normal P-Wave: Present QRS: Normal ST-T: Normal QT: Normal Comparison: NA - No Prior EKG Course - Vital Signs Last Recorded V/S: Last Vital Signs Temp 36.4 C 11/02/19 15:50 Pulse 66 11/02/19 15:50 Resp 13 11/02/19 15:50 BP 135/95 H 11/02/19 15:50 Pulse Ox 96 11/02/19 15:50 - Orders/Labs/Meds Orders: Active Orders 24 hr Category Date Time Status EKG Documentation Completion [RC] STAT Care 11/02/19 14:20 Active Nitroglycerin [Nitrostat] Med 11/02/19 14:20 Active 0.4 mg SL Q5M PRN Sodium Chloride 0.9% [Saline Flush] Med 11/02/19 14:20 Active 10 ml FLUSH ASDIRECTED PRN Peripheral IV Insertion Adult [OM.PC] Stat Oth 11/02/19 14:20 Ordered Medication Orders Nitroglycerin (Nitrostat) 0.4 mg SL Q5M PRN PRN Reason: Chest Pain Last Admin: 11/02/19 14:45 Dose: 0.4 mg Sodium Chloride (Saline Flush) 10 ml FLUSH ASDIRECTED PRN PRN Reason: Keep Vein Open Labs: Laboratory Tests 11/02/19 11/02/19 11/02/19 Range/Units 14:45 14:45 14:45 WBC 9.2 (4.0-10.0) x10^3/uL RBC 5.18 (4.5-6.0) x10^6/uL Hgb 16.4 (14.0-18.0) g/dL Hct 47.0 (40.0-52.0) % MCV 90.7 (78.0-93.0) fL MCH 31.7 (26.0-32.0) pg MCHC 34.9 (32.0-36.0) g/dL RDW Coeff of Sawyer 14.0 (10.0-15.0) % Plt Count 280 (130-400) x10^3/uL Neut % (Auto) 55.2 (50.0-80.0) % Lymph % (Auto) 30.4 (25.0-50.0) % Wirt % (Auto) 12.1 H (2.0-11.0) % Eos % (Auto) 2.0 (0.0-4.0) % Baso % (Auto) 0.3 (0.2-1.2) % PT 10.1 (10.0-12.8) SEC INR 0.9 L (2.0-3.5) Sodium 138 (136-145) mmol/L Potassium 4.2 (3.5-5.1) mmol/L Chloride 105 (98-107) mmol/L Carbon Dioxide 22 (21-32) mmol/L Anion Gap 15.2 (10-20) mmol/L BUN 18 (7-18) mg/dL Creatinine 1.1 (0.70-1.30) mg/dL Est Cr Clr Drug Dosing TNP Estimated GFR (MDRD) > 60 Glucose 96 (74-106) mg/dL Calcium 9.2 (8.5-10.1) mg/dL Corrected Calcium 9.28 (8.5-10.1) mg/dL Magnesium 2.1 (1.8-2.4) mg/dL Total Bilirubin 0.5 (0.2-1.0) mg/dL AST 18 (15-37) U/L ALT 29 (16-63) U/L Alkaline Phosphatase 110 (46-116) U/L Troponin I < 0.017 (<=0.056) ng/mL C-Reactive Protein 0.6 (<=0.9) mg/dL Total Protein 7.8 (6.4-8.2) g/dL Albumin 3.9 (3.4-5.0) g/dL Globulin 3.9 Albumin/Globulin Ratio 1.00 TSH, Ultra Sensitive 2.566 (0.358-3.74) uIU/mL Meds: Medications Generic Name Dose Route Start Last Admin Trade Name Freq PRN Reason Stop Dose Admin Nitroglycerin 0.4 mg 11/02/19 14:20 11/02/19 14:45 Nitrostat SL 0.4 mg Q5M PRN Administration Chest Pain Sodium Chloride 10 ml 11/02/19 14:20 Saline Flush FLUSH ASDIRECTED PRN Keep Vein Open Discontinued Medications Generic Name Dose Route Start Last Admin Trade Name Freq PRN Reason Stop Dose Admin Aspirin 324 mg 11/02/19 14:20 11/02/19 14:30 Aspirin PO 11/02/19 14:21 324 mg ONETIME ONE Administration - Re-Assessments/Exams Free Text/Narrative Re-Assessment/Exam: 11/02/19 14:25 Aspirin 324 chew orally. Nitro SL tab. 11/02/19 16:32 His EKG is rather unremarkable. His chest x-ray is negative. Troponin is negative as well and his TSH is within normal limits. I do have concerns over further increasing crescendoing of his symptoms. He does have some risk factors especially of smoking. This really is a presentation table angina especially with his night sweats his chest discomfort is diaphoresis and his exercise intolerance. We are unable to get him scheduled for a stress test in the very near future. I did call and speak with Dr. Cosme the call center receptionist career technical education teacher at [employer] in [place] and Dr. Willard the hospitalist. HPI ER COURSE finding and concerns were relayed to them. No new orders and no heparin at this time as he denies any chest symptoms. I did explain to the patient this could be related to his anxiety although with the resolution of his symptoms with nitro i am more concerned about cardiac disease which is why he is going to [place] for a stress test or an angio-gram. He is comfortable with this plan and his questions answered. Departure - Departure Time of Disposition: 16:00 Disposition: DC/Tfer to [facility] 02 Reason for Transfer *Q: Other (stress test or angio) Clinical Impression: Angina at rest Referrals: Roman Holguin DO [Primary Care Provider] - Forms: ED Department Discharge, Interfacility Transfer [facility] Sepsis Event Note - Evaluation Sepsis Screening Result: No Definite Risk - Focused Exam Vital Signs: Vital Signs Temp Pulse Resp BP BP Pulse Ox 11/02/19 15:50 36.4 C 66 13 135/95 H 96 11/02/19 14:50 63 12 119/70 97 11/02/19 14:45 159/93 H 11/02/19 13:55 36.4 C 65 15 145/98 H 98 Date Exam was Performed: 11/02/19 Time Exam was Performed: 16:32 - My Orders Last 24 Hours: My Active Orders 11/02/19 14:20 EKG Documentation Completion [RC] STAT Nitroglycerin [Nitrostat] 0.4 mg SL Q5M PRN Sodium Chloride 0.9% [Saline Flush] 10 ml FLUSH ASDIRECTED PRN Peripheral IV Insertion Adult [OM.PC] Stat - Assessment/Plan Last 24 Hours: My Active Orders 11/02/19 14:20 EKG Documentation Completion [RC] STAT Nitroglycerin [Nitrostat] 0.4 mg SL Q5M PRN Sodium Chloride 0.9% [Saline Flush] 10 ml FLUSH ASDIRECTED PRN Peripheral IV Insertion Adult [OM.PC] Stat Assessment:: Angina resolved with nitro worsening angina reporting frequency. Plan: Transfer to [facility] for further care and evaluation.
--- NOTE | 2019-11-02 15:02 | CR ---
[id number] RAD/RAD Chest PA And Lateral EXAM: RAD Chest PA And Lateral CLINICAL DATA: CHEST PAIN SHORTNESS OF BREATH COMPARISON: NO PREVIOUS SIMILAR EXAM IS AVAILABLE. FINDINGS: The lungs are clear but hyperaerated. The cardiomediastinal contour is mildly prominent. The regional bones and soft tissues are unremarkable. IMPRESSION: AIRWAY DISEASE Teja Hurley MD 11/02/19 [id number] Thank you for allowing us to participate in the care of your patient.
[2019-11-02 15:28] LABS: ANION GAP 15.2 mmol/L (10-20); CHLORIDE,CL 105 mmol/L (98-107); SODIUM,NA 138 mmol/L (136-145)
== END 2019-11-02 16:45 | disposition short-term general hospital (02) ==
LOC: VM.ED 13:53
DX: I20.9 Angina pectoris, unspecified (principal); I10 Essential (primary) hypertension; E78.00 Pure hypercholesterolemia, unspecified; K21.9 Gastro-esophageal reflux disease without esophagitis; F41.9 Anxiety disorder, unspecified; F32.9 Major depressive disorder, single episode, unspecified; Z79.899 Other long term (current) drug therapy
CPT/HCPCS: 36415; 71046; 80053; 83735; 84443; 84484; 85025; 85610; 86140; 93005; 99285; A9270

== ENCOUNTER 2020-09-29 13:18 | Emergency (ER) | payer MEDICARE, BC ==
[2020-09-29] MEDS ORDERED: Sodium Chloride 0.9% 10 ML Syringe FLUSH PRN (13:38)
[2020-09-29] MEDS: Lactated Ringers 1,000 ML IV ONE ×2 (14:18→15:34)
[2020-09-29] MEDS: Iopamidol 612 MG/ML 100 ML Bottle IVPUSH ONE (14:28)
[2020-09-29] MEDS: diphenhydrAMINE 50 MG/ML SDV IVPUSH ONE (14:31)
[2020-09-29] MEDS: HYDROmorphone 0.5 MG/0.5 ML Syringe IV ONE (14:33)
--- NOTE | 2020-09-29 14:44 | CT ---
[id number] CT/CT Chest Abdomen Pelvis W IV EXAM: CHEST ABDOMEN AND PELVIS CT WITH CONTRAST INDICATION: HEMOPTYSIS, SMOKER, ALSO LEFT LOWER QUADRANT PAIN, COMPARISON: Abdomen and pelvis exam of October 22, 2019. DISCUSSION: Evaluation is limited by respiratory motion. COPD with mild paraseptal emphysema in the lung apices and sequela of bronchitis. Indeterminate partly solid 6 mm nodule right middle lobe (image 47 series 2) not included in [id number] of the prior exam. A 3 mm noncalcified right middle lobe nodule (image 58 series 2) is stable suggesting benign etiology. No infiltrates. No pleural or pericardial effusion. Normal heart size. Atherosclerotic plaque scattered throughout the aorta and its major branches including the coronary arteries. Potential interval stenting of the left common iliac artery. Small sliding type hiatus hernia. Small fat-containing bilateral inguinal hernias. Stable indeterminate 23 mm left adrenal nodule. The liver, gallbladder, spleen, pancreas, adrenal glands, kidneys, and small bowel are normal in appearance. There are few scattered diverticula of the colon without evidence of diverticulitis. Vascular coils and then placed in the lateral left pelvis. The osseous structures are unremarkable. IMPRESSION: 1. Indeterminate 6 mm part solid right middle lobe nodule with minimal solid component. A 6 month follow-up chest CT without contrast is suggested. 2. COPD. 3. Scattered diverticula without evidence of diverticulitis. No acute findings in the abdomen or pelvis. Van Bray MD 09/29/20 [id number] Thank you for allowing us to participate in the care of your patient.
[2020-09-29 14:53] LABS: CHLORIDE,CL 103 mmol/L (98-107); SODIUM,NA 137 mmol/L (136-145)
[2020-09-29 14:55] LABS: ANION GAP 17.1 mmol/L (5-15)
--- NOTE | 2020-09-29 15:29 | EDM.PDOC ---
ED HPI GENERAL MEDICAL PROBLEM - General Chief Complaint: Abdominal Pain Stated Complaint: SEVERE LOWER QUAD PAIN Time Seen by Provider: 09/29/20 13:30 Source of Information: Reports: Patient History Limitations: Reports: No Limitations - History of Present Illness INITIAL COMMENTS - FREE TEXT/NARRATIVE: Patient comes emergency department today with complaints of severe left lower quadrant abdominal pain and hemoptysis. This patient was actually seen in the clinic just a couple of hours ago with concerns of hemoptysis. This patient twice once yesterday and once this morning according to him right before brushing his teeth he coughed and it was jarred bright red blood a small amount. These are isolated incidences that only happen when he got up in the morning once yesterday and once today he has had no other cough or hemoptysis. He has no shortness of breath chest pain or difficulty breathing. No fever no chills. He has not been exposed to anyone with Covid. No loss of taste or smell. He was to return to the hospital in a couple of hours to have a CT of the chest due to the hemoptysis but while he was at home he suddenly developed severe left lower quadrant cramping peristaltic type abdominal pain. He became very anxious and worried about this so he came to the emergency department. He does have a history of constipation for which I have seen him for. He has not taken his MiraLAX any longer because when he takes his MiraLAX he is not constipated anymore so therefore he stopped taking it. Then he becomes constipated again. He actually had quite a bit of diarrhea yesterday. He is supposed to have every 2-year colonoscopy he is due in the next month. He has had no black or tarry stools. No jarred rectal bleeding. No rectal pressure. He has had no surgeries on his abdomen in the past. No hematuria dysuria or urinary frequency. No flank pain. No Covid exposure no Covid symptoms. Left Lower Abdominal Pain Score (Numeric/FACES): 6 - Related Data Allergies Allergy/AdvReac Type Severity Reaction Status Date / Time No Known Allergies Allergy Verified 09/29/20 14:05 Home Meds: Home Meds Metoprolol Succinate 100 mg PO DAILY 10/21/19 [History] Mirtazapine 30 mg PO BEDTIME 10/21/19 [History] QUEtiapine [SEROquel] 200 mg PO BID 10/21/19 [History] Simvastatin 20 mg PO DAILY 10/21/19 [History] Tamsulosin [Tamsulosin 24 Hr] 0.4 mg PO DAILY 10/21/19 [History] Aspirin 81 mg PO DAILY 11/25/19 [History] Clopidogrel Bisulfate [Plavix] 75 mg PO DAILY 11/25/19 [History] clonazePAM [Clonazepam] 1 mg PO BEDTIME 11/25/19 [History] QUEtiapine [SEROquel] 100 mg PO ASDIRECTED 11/26/19 [History] Dicyclomine [Bentyl] 10 mg PO TID PRN #12 cap 09/29/20 [Rx] Past Medical History - Past Health History Medical/Surgical History: Denies Medical/Surgical History Cardiovascular History: Reports: High Cholesterol, Hypertension Gastrointestinal History: Reports: GERD Psychiatric History: Reports: Anxiety, Depression ED ROS GENERAL - Review of Systems Review Of Systems: Comprehensive ROS is negative, except as noted in HPI. ED EXAM, GI/ABD - Physical Exam Exam: See Below Exam Limited By: No Limitations General Appearance: Alert, Anxious (Extremely anxious he does have a pretty extensive history of anxiety.) Ears: Normal External Exam Nose: Normal Inspection, Normal Mucosa Throat/Mouth: Normal Inspection, Normal Lips Head: Atraumatic, Normocephalic Neck: Normal Inspection, Supple, Non-Tender Respiratory/Chest: No Respiratory Distress, Lungs Clear, Normal Breath Sounds, No Accessory Muscle Use, Chest Non-Tender Cardiovascular: Normal Peripheral Pulses, Regular Rate, Rhythm GI/Abdominal Exam: Normal Bowel Sounds, Soft, Tender (Tenderness with mild guarding to the left lower quadrant. No rebound tenderness. No rigidity. Decreased bowel sounds. No peritoneal signs.) (Male) Exam: Deferred Rectal (Males) Exam: Deferred Back Exam: Normal Inspection, Full Range of Motion Extremities: Normal Inspection, Normal Range of Motion, Non-Tender, Normal Capillary Refill Neurological: Alert, Oriented, Normal Cognition, Normal Gait, No Motor/Sensory Deficits Psychiatric: Normal Affect, Normal Mood Skin Exam: Warm, Dry, Intact, Normal Color, No Rash Lymphatic: No Adenopathy Course - Vital Signs Last Recorded V/S: Last Vital Signs Temp 97.9 F 09/29/20 13:30 Pulse 58 L 09/29/20 13:30 Resp 20 09/29/20 13:30 BP 155/89 H 02/25/21 13:30 Pulse Ox 96 09/29/20 13:30 - Orders/Labs/Meds Orders: Active Orders 24 hr Category Date Time Status Peripheral IV Insertion Adult [OM.PC] Stat Oth 09/29/20 13:37 Ordered Labs: Laboratory Tests 09/29/20 09/29/20 09/29/20 Range/Units 13:58 14:17 14:17 WBC 10.1 H (4.0-10.0) x10^3/uL RBC 5.19 (4.5-6.0) x10^6/uL Hgb 16.3 (14.0-18.0) g/dL Hct 46.4 (40.0-52.0) % MCV 89.4 (78.0-93.0) fL MCH 31.4 (26.0-32.0) pg MCHC 35.1 (32.0-36.0) g/dL RDW Coeff of Sawyer 13.9 (10.0-15.0) % Plt Count 283 (130-400) x10^3/uL Neut % (Auto) 63.9 (50.0-80.0) % Lymph % (Auto) 23.1 L (25.0-50.0) % Gilpin % (Auto) 11.3 H (2.0-11.0) % Eos % (Auto) 1.4 (0.0-4.0) % Baso % (Auto) 0.3 (0.2-1.2) % Sodium 137 (136-145) mmol/L Potassium 4.1 (3.5-5.1) mmol/L Chloride 103 (98-107) mmol/L Carbon Dioxide 21 (21-32) mmol/L Anion Gap 17.1 H (5-15) mmol/L BUN 20 H (7-18) mg/dL Creatinine 1.2 (0.70-1.30) mg/dL Est Cr Clr Drug Dosing 53.39 mL/min Estimated GFR (MDRD) > 60 Glucose 100 (74-106) mg/dL Lactic Acid 0.8 (0.4-2.0) mmol/L Calcium 8.7 (8.5-10.1) mg/dL Corrected Calcium 8.94 (8.5-10.1) mg/dL Total Bilirubin 0.4 (0.2-1.0) mg/dL AST 20 (15-37) U/L ALT 41 (16-63) U/L Alkaline Phosphatase 98 (46-116) U/L C-Reactive Protein < 0.2 (<=0.9) mg/dL Total Protein 7.3 (6.4-8.2) g/dL Albumin 3.7 (3.4-5.0) g/dL Globulin 3.6 Albumin/Globulin Ratio 1.03 Lipase 200 (73-393) U/L Urine Color (YELLOW) Urine Appearance (CLEAR) Urine pH (5.0-8.0) Ur Specific Garita Urine Protein (NEGATIVE) mg/dL Urine Glucose (UA) (NEGATIVE) mg/dL Urine Ketones (NEGATIVE) mg/dL Urine Occult Blood (NEGATIVE) Urine Nitrite (NEGATIVE) Urine Bilirubin (NEGATIVE) Urine Urobilinogen (0.2) EU/dL Ur Leukocyte Esterase (NEGATIVE) 09/29/20 Range/Units 15:27 WBC (4.0-10.0) x10^3/uL RBC (4.5-6.0) x10^6/uL Hgb (14.0-18.0) g/dL Hct (40.0-52.0) % MCV (78.0-93.0) fL MCH (26.0-32.0) pg MCHC (32.0-36.0) g/dL RDW Coeff of Sawyer (10.0-15.0) % Plt Count (130-400) x10^3/uL Neut % (Auto) (50.0-80.0) % Lymph % (Auto) (25.0-50.0) % Gil[place] % (Auto) (2.0-11.0) % Eos % (Auto) (0.0-4.0) % Baso % (Auto) (0.2-1.2) % Sodium (136-145) mmol/L Potassium (3.5-5.1) mmol/L Chloride (98-107) mmol/L Carbon Dioxide (21-32) mmol/L Anion Gap (5-15) mmol/L BUN (7-18) mg/dL Creatinine (0.70-1.30) mg/dL Est Cr Clr Drug Dosing mL/min Estimated GFR (MDRD) Glucose (74-106) mg/dL Lactic Acid (0.4-2.0) mmol/L Calcium (8.5-10.1) mg/dL Corrected Calcium (8.5-10.1) mg/dL Total Bilirubin (0.2-1.0) mg/dL AST (15-37) U/L ALT (16-63) U/L Alkaline Phosphatase (46-116) U/L C-Reactive Protein (<=0.9) mg/dL Total Protein (6.4-8.2) g/dL Albumin (3.4-5.0) g/dL Globulin Albumin/Globulin Ratio Lipase (73-393) U/L Urine Color Light yellow (YELLOW) Urine Appearance Clear (CLEAR) Urine pH 5.0 (5.0-8.0) Ur Specific Garita 1.010 Urine Protein Negative (NEGATIVE) mg/dL Urine Glucose (UA) Negative (NEGATIVE) mg/dL Urine Ketones Negative (NEGATIVE) mg/dL Urine Occult Blood Negative (NEGATIVE) Urine Nitrite Negative (NEGATIVE) Urine Bilirubin Negative (NEGATIVE) Urine Urobilinogen 0.2 (0.2) EU/dL Ur Leukocyte Esterase Negative (NEGATIVE) Meds: Medications Discontinued Medications Generic Name Dose Route Start Last Admin Trade Name Freq PRN Reason Stop Dose Admin Dicyclomine HCl 20 mg 09/29/20 15:21 09/29/20 15:30 Bentyl IM 09/29/20 15:22 20 mg ONETIME ONE Administration Diphenhydramine HCl 25 mg 09/29/20 13:38 09/29/20 14:31 Benadryl IVPUSH 09/29/20 13:39 25 mg ONETIME ONE Administration Hydromorphone HCl 0.5 mg 09/29/20 13:38 09/29/20 14:33 Dilaudid IV 09/29/20 13:39 0.5 mg ONETIME ONE Administration Lactated Ringer's 1,000 mls @ 999 mls/hr 09/29/20 13:38 09/29/20 14:18 Ringers, Lactated IV 09/29/20 14:38 999 mls/hr ONETIME ONE Administration Lactated Ringer's 1,000 mls @ 999 mls/hr 09/29/20 15:21 09/29/20 15:34 Ringers, Lactated IV 09/29/20 16:21 Not Given ONETIME ONE Iopamidol 100 ml 09/29/20 14:28 09/29/20 14:28 Isovue-300 (61%) IVPUSH 09/29/20 14:29 100 ml ONETIME ONE Administration Sodium Chloride 10 ml 09/29/20 13:38 Saline Flush FLUSH ASDIRECTED PRN Keep Vein Open - Radiology Interpretation Free Text/Narrative:: CT chest abdomen pelvis with contrast per radiology shows an indeterminant 6 mm part solid right middle lobe nodule with minimal solid component. 6-month follow-up chest CT without contrast is suggested. COPD. Scattered diverticula without evidence of diverticulitis. No acute findings in the abdomen or pelvis. - Re-Assessments/Exams Free Text/Narrative Re-Assessment/Exam: 09/29/20 An IV was established labs were drawn. The patient was given Dilaudid and Benadryl for pain and relaxation. 1 L LR wide open. Laboratory evaluation with a mild elevation of his WBC at 10.1 hemoglobin 16.3 platelet count 283. CMP rather unremarkable with a mild elevation of his BUN at 20 with a normal creatinine of 1.2. T bili normal at 0.4 AST ALT and alk phos are all normal as well. His lactic acid is -0.8. C-reactive protein less than 0.2. Lipase is normal at 200. Urinalysis is negative for any infection and/or blood in it is urinalysis. Patient had quite a bit of improvement of his pain and it was completely resolved. Laboratory evaluation is rather unremarkable. His CT scan shows a small right middle lobe nodule. COPD diverticula without evidence of diverticulitis. Otherwise no other acute findings in the abdomen. When I review it I do not see any large amount of stool and actually his descending and transverse colon is rather empty of stool. I did talk with his primary care provider who we saw previously in the [place] about the results and she will refer him to the lung nodule clinic in [place] due to the findings of his lung nodule today and his history of smoking. I am unsure of what is causing his abdominal pain but its most likely related to his colitis that he has in the past. He had quite a bit of diarrhea yesterday. He was given some Bentyl in the emergency department with complete resolution of his symptoms following the above therapy. We will discharge him home at this time with symptomatic management as well as some Bentyl. Anything new or worse he is to recheck. He is comfortable with this plan and his questions are answered. Departure - Departure Time of Disposition: 15:19 Disposition: Home, Self-Care 01 Clinical Impression: Nodule of right lung, Hemoptysis, Diverticula of colon Abdominal pain Qualifiers: Abdominal location: left lower quadrant Qualified Code(s): R10.32 - Left lower quadrant pain - Discharge Information Prescriptions: Dicyclomine [Bentyl] 10 mg PO TID PRN #12 cap PRN Reason: Abdominal Pain Instructions: Hemoptysis, [id number], Abdominal Pain, Adult, [id number], Pulmonary Nodule, [id number] Referrals: Aminah Green MD [Primary Care Provider] - Forms: ED Department Discharge Additional Instructions: Make sure and drink plenty of fluids. With your constipation continue the Miralax as previous. When it starts to work solving your constipation continue so that you don't get constipated again. The lung nodule clinic from [place] will contact you for follow up of the lung nodule noted today on your CT scan. Dr. Green has put the referral in from the clinic already. Unsure of what is causing your abd pain today. Tylenol and or Ibuprofen as needed for pain. With your history of colitis could be some spasms. We will try Bentyl 1 tablet 4 times a day as needed for abd pain spasms. Rx sent to your pharmacy. Return to the ED if new or worsening symptoms. Follow up with PCP in the next 4-6 days if not improving sooner if worse. Otherwise follow up with the [place] [facility] as directed from them. Sepsis Event Note (ED) - Evaluation Sepsis Screening Result: No Definite Risk - Focused Exam Vital Signs: Vital Signs Temp Pulse Resp BP Pulse Ox 09/29/20 13:30 97.9 F 58 L 20 155/89 H 96 - My Orders Last 24 Hours: My Active Orders 09/29/20 13:37 Peripheral IV Insertion Adult [OM.PC] Stat - Assessment/Plan Last 24 Hours: My Active Orders 09/29/20 13:37 Peripheral IV Insertion Adult [OM.PC] Stat
[2020-09-29] MEDS: Dicyclomine 20 MG/2 ML SDV IM ONE (15:30)
== END 2020-09-29 16:10 | disposition home or self-care (01) ==
LOC: VM.ED 13:18
DX: K57.30 Diverticulosis of large intestine without perforation or abscess without bleeding (principal); R04.2 Hemoptysis; R91.1 Solitary pulmonary nodule; D72.829 Elevated white blood cell count, unspecified; I10 Essential (primary) hypertension; E78.00 Pure hypercholesterolemia, unspecified; Z79.82 Long term (current) use of aspirin; Z79.02 Long term (current) use of antithrombotics/antiplatelets; Z79.899 Other long term (current) drug therapy
CPT/HCPCS: 36415; 71260; 74177; 80053; 81003; 83605; 83690; 85025; 86140; 96372; 96374; 96375; 99284; 99285; J0500; J1170; J1200; J7120; Q9967

== ENCOUNTER 2022-07-09 14:42 | Emergency (ER) | payer MEDICARE, BC ==
[2022-07-09 15:45] LABS: CHLORIDE,CL 105 mmol/L (98-107); SODIUM,NA 138 mmol/L (136-145)
[2022-07-09 15:46] LABS: ANION GAP 14.7 mmol/L (5-15); ESTIMATED GFR 51 mL/min (>=60)
== END 2022-07-09 16:26 | disposition home or self-care (01) ==
LOC: SUPCPDRO 14:42 → VM.ED 14:42
DX: I49.3 Ventricular premature depolarization (principal); E78.00 Pure hypercholesterolemia, unspecified; I10 Essential (primary) hypertension; Z79.82 Long term (current) use of aspirin; Z79.899 Other long term (current) drug therapy; Z87.891 Personal history of nicotine dependence
CPT/HCPCS: 36415; 71046; 80053; 82550; 83615; 84484; 85025; 86140; 93005; 93010; 99284

== ENCOUNTER 2022-10-23 14:48 | Emergency (ER) | payer MEDICARE, BC ==
[2022-10-23 16:00] LABS: CHLORIDE,CL 105 mmol/L (98-107); ESTIMATED GFR 51 mL/min (>=60); SODIUM,NA 140 mmol/L (136-145)
== END 2022-10-23 16:31 | disposition home or self-care (01) ==
LOC: VM.ED 14:48
DX: K56.7 Ileus, unspecified (principal); I25.10 Atherosclerotic heart disease of native coronary artery without angina pectoris; E78.00 Pure hypercholesterolemia, unspecified; I10 Essential (primary) hypertension; K21.9 Gastro-esophageal reflux disease without esophagitis; Z79.899 Other long term (current) drug therapy; Z79.02 Long term (current) use of antithrombotics/antiplatelets; Z79.82 Long term (current) use of aspirin; Z87.891 Personal history of nicotine dependence
CPT/HCPCS: 36415; 74019; 80053; 85025; 86140; 99283; 99284

== ENCOUNTER 2022-11-19 09:44 | Day surgery (SDC) | payer MEDICARE, BC ==
[~2022-11-19 09:44] MED LIST: Lactated Ringers 1,000 ML IV SCH; Propofol 200 MG/20 ML SDV ONE; fentaNYL 100 MCG/2 ML SDV ONE
[2022-12-06] MEDS ORDERED: Lactated Ringers 1,000 ML IV SCH (07:00)
== END 2022-11-19 12:30 | disposition home or self-care (01) ==
LOC: VM.SDS 09:44
PROVIDERS: ATTEND Surgery
DX: Z12.11 Encounter for screening for malignant neoplasm of colon (principal); R10.84 Generalized abdominal pain; F32.A Depression, unspecified; I25.110 Atherosclerotic heart disease of native coronary artery with unstable angina pectoris; I73.9 Peripheral vascular disease, unspecified; K21.9 Gastro-esophageal reflux disease without esophagitis; F17.210 Nicotine dependence, cigarettes, uncomplicated; Z86.19 Personal history of other infectious and parasitic diseases; Z86.010 Personal history of colon polyps; Z87.19 Personal history of other diseases of the digestive system; L91.8 Other hypertrophic disorders of the skin; Z80.0 Family history of malignant neoplasm of digestive organs
CPT/HCPCS: 00813; J2704; J3010

== ENCOUNTER 2023-01-02 12:29 | Emergency (ER) | payer MEDICARE, BC ==
[2023-01-02 13:04] LABS: BASOPHILS PERCENT AUTO 0.3 % (0.2-1.2); EOSINOPHILS ABSOLUTE AUTO 0.1 x10^3/uL (0.0-0.5); EOSINOPHILS PERCENT AUTO 0.9 % (0.0-4.0); HEMATOCRIT 45.9 % (40.0-52.0); HEMOGLOBIN 16.3 g/dL (14.0-18.0); IMMATURE GRAN ABSOLUTE AUTO 0.01 x10^3/uL (0.00-0.07); LYMPHOCYTES PERCENT AUTO 22.6 % (25.0-50.0); MEAN CORPUSCULAR HEMOGLOBIN 31.2 pg (26.0-32.0); MEAN CORPUSCULAR HGB CONC 35.5 g/dL (32.0-36.0); MEAN CORPUSCULAR VOLUME 87.8 fL (78.0-93.0); MONOCYTES ABSOLUTE AUTO 1.1 x10^3/uL (0.0-0.8); NEUTROPHILS ABSOLUTE AUTO 5.8 x10^3/uL (1.8-7.7); NEUTROPHILS PERCENT AUTO 64.1 % (50.0-80.0); PLATELET COUNT,PLT 250 x10^3/uL (130-400); RED BLOOD CELL COUNT 5.23 x10^6/uL (4.5-6.0)
[2023-01-02] MEDS ORDERED: Ondansetron 4 MG/2 ML SDV IVPUSH ONE (13:22)
[2023-01-02] MEDS ORDERED: Sodium Chloride 0.9% 1,000 ML IV ONE (13:22)
[2023-01-02 13:23] LABS: A/G RATIO 1.23; ALANINE AMINOTRANSFERASE,ALT 8 U/L (16-63); ALBUMIN 4.3 g/dL (3.4-5.0); ALKALINE PHOSPHATASE 106 U/L (46-116); AMYLASE 57 U/L (25-115); ANION GAP 16.9 mmol/L (5-15); ASPARTATE AMNIOTRANSFERASE,AST 25 U/L (15-37); BILIRUBIN TOTAL 0.6 mg/dL (0.2-1.0); BLOOD UREA NITROGEN,BUN 15 mg/dL (7-18); C-REACTIVE PROTEIN < 0.2 mg/dL (<=0.9); CALCIUM 9.7 mg/dL (8.5-10.1); CARBON DIOXIDE,CO2 22 mmol/L (21-32); CHLORIDE,CL 107 mmol/L (98-107); CREATININE 1.2 mg/dL (0.70-1.30); ESTIMATED GFR 66 mL/min (>=60); GLUCOSE RANDOM 112 mg/dL (70-99); LIPASE 167 U/L (73-393); POTASSIUM,K 3.9 mmol/L (3.5-5.1); PROTEIN TOTAL,TP 7.8 g/dL (6.4-8.2); SODIUM,NA 142 mmol/L (136-145)
[2023-01-02 13:41] LABS: APPEARANCE,URINE CLEAR (CLEAR); BILIRUBIN,URINE NEGATIVE (NEGATIVE); COLOR,URINE YELLOW (YELLOW); GLUCOSE,URINE NEGATIVE (NEGATIVE); KETONES,URINE NEGATIVE (NEGATIVE); LEUKOCYTE ESTERASE,URINE NEGATIVE (NEGATIVE); NITRITE,URINE NEGATIVE (NEGATIVE); OCCULT BLOOD,URINE NEGATIVE (NEGATIVE); PROTEIN,URINE NEGATIVE (NEGATIVE); UROBILINOGEN,URINE 0.2 EU/dL (0.2)
== END 2023-01-02 15:00 | disposition home or self-care (01) ==
LOC: VM.ED 12:29
DX: R10.32 Left lower quadrant pain (principal); I25.10 Atherosclerotic heart disease of native coronary artery without angina pectoris; E78.00 Pure hypercholesterolemia, unspecified; I10 Essential (primary) hypertension; K21.9 Gastro-esophageal reflux disease without esophagitis; Z72.0 Tobacco use; Z79.82 Long term (current) use of aspirin; Z79.02 Long term (current) use of antithrombotics/antiplatelets; Z79.899 Other long term (current) drug therapy
CPT/HCPCS: 74019; 80053; 81003; 82150; 83690; 85025; 86140; 96361; 96374; 99284; 99284-25; J2405; J7030

== ENCOUNTER 2023-05-16 08:44 | Emergency (ER) | payer MEDICARE, BC ==
[2023-05-16] MEDS ORDERED: Sodium Chloride 0.9% 10 ML Syringe FLUSH PRN (09:11)
[2023-05-16 09:18] LABS: BASOPHILS PERCENT AUTO 0.3 % (0.2-1.2); EOSINOPHILS ABSOLUTE AUTO 0.1 x10^3/uL (0.0-0.5); EOSINOPHILS PERCENT AUTO 0.6 % (0.0-4.0); HEMATOCRIT 43.4 % (40.0-52.0); HEMOGLOBIN 15.2 g/dL (14.0-18.0); IMMATURE GRAN ABSOLUTE AUTO 0.01 x10^3/uL (0.00-0.07); LYMPHOCYTES ABSOLUTE AUTO 1.1 x10^3/uL (1.0-4.8); LYMPHOCYTES PERCENT AUTO 12.3 % (25.0-50.0); MEAN CORPUSCULAR HEMOGLOBIN 31.5 pg (26.0-32.0); MEAN CORPUSCULAR VOLUME 89.9 fL (78.0-93.0); MONOCYTES ABSOLUTE AUTO 0.7 x10^3/uL (0.0-0.8); MONOCYTES PERCENT AUTO 8.1 % (2.0-11.0); NEUTROPHILS ABSOLUTE AUTO 6.9 x10^3/uL (1.8-7.7); NEUTROPHILS PERCENT AUTO 78.6 % (50.0-80.0); PLATELET COUNT,PLT 256 x10^3/uL (130-400); RED BLOOD CELL COUNT 4.83 x10^6/uL (4.5-6.0); WHITE BLOOD CELL COUNT,WBC 8.8 x10^3/uL (4.0-10.0)
[2023-05-16 09:37] LABS: LACTIC ACID 1.9 mmol/L (0.4-2.0)
[2023-05-16 09:46] LABS: ALBUMIN 3.7 g/dL (3.4-5.0); ANION GAP 18.1 mmol/L (5-15); BILIRUBIN TOTAL 0.5 mg/dL (0.2-1.0); C-REACTIVE PROTEIN 0.36 mg/dL (<=0.30); CALCIUM 8.9 mg/dL (8.5-10.1); CREATININE 1.3 mg/dL (0.70-1.30); EST CRCL DRUG DOSING (CG) 47.96 mL/min; MAGNESIUM 1.8 mg/dL (1.8-2.4); POTASSIUM,K 4.1 mmol/L (3.5-5.1); PROTEIN TOTAL,TP 7.4 g/dL (6.4-8.2); TSH ULTRASENSITIVE 1.41 uIU/mL (0.358-3.74)
[2023-05-16 09:52] LABS: PROTHROMBIN TIME 10.6 SEC (9.5-12.2); PTT,PARTIAL THROMBOPLSTIN TIME 26.3 SEC (23.6-33.6)
== END 2023-05-16 10:40 | disposition home or self-care (01) ==
LOC: VM.ED 08:44
DX: S22.32XA Fracture of one rib, left side, initial encounter for closed fracture (principal); I25.10 Atherosclerotic heart disease of native coronary artery without angina pectoris; I25.2 Old myocardial infarction; I10 Essential (primary) hypertension; E78.00 Pure hypercholesterolemia, unspecified; K21.9 Gastro-esophageal reflux disease without esophagitis; Z87.891 Personal history of nicotine dependence; Z79.02 Long term (current) use of antithrombotics/antiplatelets; Z79.82 Long term (current) use of aspirin; Z79.899 Other long term (current) drug therapy; W19.XXXA Unspecified fall, initial encounter
CPT/HCPCS: 71045; 80053; 83605; 83735; 84443; 84484; 85025; 85379; 85610; 85730; 86140; 93005; 99285

== ENCOUNTER 2023-09-03 17:07 | Emergency (ER) | payer MEDICARE, BC ==
[2023-09-03] MEDS ORDERED: LORazepam 1 MG Tab PO ONE (17:24)
[2023-09-03 17:44] LABS: BASOPHILS PERCENT AUTO 0.4 % (0.2-1.2); EOSINOPHILS ABSOLUTE AUTO 0.2 x10^3/uL (0.0-0.5); EOSINOPHILS PERCENT AUTO 2.1 % (0.0-4.0); HEMATOCRIT 47.5 % (40.0-52.0); HEMOGLOBIN 16.4 g/dL (14.0-18.0); IMMATURE GRAN ABSOLUTE AUTO 0.01 x10^3/uL (0.00-0.07); LYMPHOCYTES ABSOLUTE AUTO 3.1 x10^3/uL (1.0-4.8); LYMPHOCYTES PERCENT AUTO 31.9 % (25.0-50.0); MEAN CORPUSCULAR HEMOGLOBIN 31.1 pg (26.0-32.0); MEAN CORPUSCULAR HGB CONC 34.5 g/dL (32.0-36.0); MONOCYTES ABSOLUTE AUTO 1.2 x10^3/uL (0.0-0.8); MONOCYTES PERCENT AUTO 12.7 % (2.0-11.0); NEUTROPHILS ABSOLUTE AUTO 5.1 x10^3/uL (1.8-7.7); NEUTROPHILS PERCENT AUTO 52.8 % (50.0-80.0); PLATELET COUNT,PLT 257 x10^3/uL (130-400); RED BLOOD CELL COUNT 5.28 x10^6/uL (4.5-6.0); WHITE BLOOD CELL COUNT,WBC 9.7 x10^3/uL (4.0-10.0)
[2023-09-03 17:54] LABS: APPEARANCE,URINE CLEAR (CLEAR); BILIRUBIN,URINE NEGATIVE (NEGATIVE); COLOR,URINE YELLOW (YELLOW); GLUCOSE,URINE NEGATIVE (NEGATIVE); KETONES,URINE NEGATIVE (NEGATIVE); LEUKOCYTE ESTERASE,URINE NEGATIVE (NEGATIVE); NITRITE,URINE NEGATIVE (NEGATIVE); OCCULT BLOOD,URINE TRACE-LYSED (NEGATIVE); PH,URINE 5.5 (5.0-8.0); PROTEIN,URINE NEGATIVE (NEGATIVE); UROBILINOGEN,URINE 0.2 EU/dL (0.2)
[2023-09-03 17:58] LABS: AMPHETAMINES SCREEN, URINE NEGATIVE (NEGATIVE); BARBITURATE SCREEN,URINE NEGATIVE (NEGATIVE); BENZODIAZEPINES SCREEN,URINE POSITIVE (NEGATIVE); BUPRENORPHINE SCREEN,URINE NEGATIVE (NEGATIVE); COCAINE METABOLITES,URINE NEGATIVE (NEGATIVE); METHADONE SCREEN, URINE NEGATIVE (NEGATIVE); METHAMPHETAMINE SCREEN, URINE NEGATIVE (NEGATIVE); OXYCODONE SCREEN,URINE NEGATIVE (NEGATIVE); PCP SCREEN,URINE NEGATIVE (NEGATIVE); THC SCREEN,URINE 50 NG/ML POSITIVE (NEGATIVE)
[2023-09-03 18:01] LABS: BACTERIA,URINE NOT SEEN /HPF (NOT SEEN); HYALINE CASTS,URINE RARE; MUCUS,URINE RARE /LPF (NOT SEEN); RBC,URINE NOT SEEN /HPF (NOT SEEN); SQUAMOUS EPITHELIAL CELLS,UR RARE /HPF (NOT SEEN); WBC,URINE NOT SEEN /HPF (NOT SEEN)
[2023-09-03 18:07] LABS: A/G RATIO 1.24; ALANINE AMINOTRANSFERASE,ALT 42 U/L (16-63); ALBUMIN 4.1 g/dL (3.4-5.0); ALKALINE PHOSPHATASE 99 U/L (46-116); ASPARTATE AMNIOTRANSFERASE,AST 26 U/L (15-37); BILIRUBIN TOTAL 0.3 mg/dL (0.2-1.0); BLOOD UREA NITROGEN,BUN 20 mg/dL (7-18); CALCIUM 8.9 mg/dL (8.5-10.1); CARBON DIOXIDE,CO2 25 mmol/L (21-32); CHLORIDE,CL 106 mmol/L (98-107); CREATININE 1.4 mg/dL (0.70-1.30); GLUCOSE RANDOM 107 mg/dL (70-99); MAGNESIUM 1.9 mg/dL (1.8-2.4); POTASSIUM,K 3.9 mmol/L (3.5-5.1); PROTEIN TOTAL,TP 7.4 g/dL (6.4-8.2); SODIUM,NA 141 mmol/L (136-145)
[2023-09-03 18:10] LABS: ANION GAP 13.9 mmol/L (5-15); ESTIMATED GFR 55 mL/min (>=60)
[2023-09-03] MEDS ORDERED: Take Home: LORazepam 0.5 MG Tab, 2 Tab Pack PO ONE (18:16)
[2023-09-03 18:19] LABS: ETHANOL BLOOD MEDICAL < 3 mg/dL (0-3)
== END 2023-09-03 18:29 | disposition home or self-care (01) ==
LOC: VM.ED 17:07
DX: F41.0 Panic disorder [episodic paroxysmal anxiety] (principal); I10 Essential (primary) hypertension; E78.00 Pure hypercholesterolemia, unspecified; I25.10 Atherosclerotic heart disease of native coronary artery without angina pectoris; I25.2 Old myocardial infarction; K21.9 Gastro-esophageal reflux disease without esophagitis; Z79.82 Long term (current) use of aspirin; Z79.899 Other long term (current) drug therapy; Z87.891 Personal history of nicotine dependence; Z79.02 Long term (current) use of antithrombotics/antiplatelets
CPT/HCPCS: 36415; 80053; 80305; 80307; 81001; 83735; 84484; 85025; 93005; 93010; 99284; 99285; A9270

== ENCOUNTER 2023-09-07 11:50 | Emergency (ER) | payer MEDICARE, BC ==
[2023-09-07 13:21] LABS: BASOPHILS ABSOLUTE AUTO 0.1 x10^3/uL (0.0-0.2); BASOPHILS PERCENT AUTO 0.4 % (0.2-1.2); EOSINOPHILS ABSOLUTE AUTO 0.1 x10^3/uL (0.0-0.5); EOSINOPHILS PERCENT AUTO 0.6 % (0.0-4.0); HEMATOCRIT 49.7 % (40.0-52.0); HEMOGLOBIN 17.2 g/dL (14.0-18.0); IMMATURE GRAN ABSOLUTE AUTO 0.02 x10^3/uL (0.00-0.07); LYMPHOCYTES ABSOLUTE AUTO 2.7 x10^3/uL (1.0-4.8); LYMPHOCYTES PERCENT AUTO 24.3 % (25.0-50.0); MEAN CORPUSCULAR HEMOGLOBIN 30.7 pg (26.0-32.0); MEAN CORPUSCULAR HGB CONC 34.6 g/dL (32.0-36.0); MEAN CORPUSCULAR VOLUME 88.8 fL (78.0-93.0); MONOCYTES ABSOLUTE AUTO 1.1 x10^3/uL (0.0-0.8); MONOCYTES PERCENT AUTO 10.1 % (2.0-11.0); NEUTROPHILS ABSOLUTE AUTO 7.2 x10^3/uL (1.8-7.7); NEUTROPHILS PERCENT AUTO 64.4 % (50.0-80.0); PLATELET COUNT,PLT 290 x10^3/uL (130-400); WHITE BLOOD CELL COUNT,WBC 11.1 x10^3/uL (4.0-10.0)
[2023-09-07 13:38] LABS: A/G RATIO 1.16; ALANINE AMINOTRANSFERASE,ALT 38 U/L (16-63); ALBUMIN 4.3 g/dL (3.4-5.0); ALKALINE PHOSPHATASE 104 U/L (46-116); ASPARTATE AMNIOTRANSFERASE,AST 27 U/L (15-37); BILIRUBIN TOTAL 0.7 mg/dL (0.2-1.0); BLOOD UREA NITROGEN,BUN 16 mg/dL (7-18); CALCIUM 9.4 mg/dL (8.5-10.1); CARBON DIOXIDE,CO2 22 mmol/L (21-32); CHLORIDE,CL 103 mmol/L (98-107); CREATININE 1.4 mg/dL (0.70-1.30); GLUCOSE RANDOM 110 mg/dL (70-99); LIPASE 74 U/L (19-71); SODIUM,NA 140 mmol/L (136-145)
[2023-09-07 13:39] LABS: C-REACTIVE PROTEIN < 0.50 mg/dL (<=0.50); ESTIMATED GFR 55 mL/min (>=60)
== END 2023-09-07 15:08 | disposition home or self-care (01) ==
LOC: VM.ED 11:50
DX: F41.9 Anxiety disorder, unspecified (principal); K52.9 Noninfective gastroenteritis and colitis, unspecified; I10 Essential (primary) hypertension; I25.10 Atherosclerotic heart disease of native coronary artery without angina pectoris; I25.2 Old myocardial infarction; Z72.0 Tobacco use; Z79.899 Other long term (current) drug therapy; Z79.82 Long term (current) use of aspirin
CPT/HCPCS: 36415; 74019; 80053; 83690; 85025; 86140; 99283; 99284

== ENCOUNTER 2024-04-23 10:34 | Day surgery (SDC) | payer MEDICARE, BC ==
[2024-04-23] MEDS: Lactated Ringers 1,000 ML IV SCH (11:11)
[2024-04-23] MEDS: Ondansetron 4 MG/2 ML SDV IV PRN (11:28)
[2024-04-23] MEDS: Midazolam Oral Soln 10 MG/5 ML UD Cup PO PRN (11:29)
[2024-04-23] MEDS ORDERED: Propofol 200 MG/20 ML SDV ONE (12:09)
[2024-04-23] MEDS ORDERED: fentaNYL 100 MCG/2 ML SDV ONE (12:09)
[2024-04-26] MEDS ORDERED: Lactated Ringers 1,000 ML IV SCH (07:00)
== END 2024-04-23 14:16 | disposition home or self-care (01) ==
LOC: VM.SDS 10:34
PROVIDERS: ATTEND Family Medicine
DX: K29.50 Unspecified chronic gastritis without bleeding (principal); K31.89 Other diseases of stomach and duodenum; K44.9 Diaphragmatic hernia without obstruction or gangrene; F33.9 Major depressive disorder, recurrent, unspecified; I25.10 Atherosclerotic heart disease of native coronary artery without angina pectoris; K21.9 Gastro-esophageal reflux disease without esophagitis; I73.9 Peripheral vascular disease, unspecified; J43.9 Emphysema, unspecified; Z79.899 Other long term (current) drug therapy
CPT/HCPCS: 00731; 88305; 88342; A9270-GY; J2405; J2704; J3010; J7120

== ENCOUNTER 2024-07-14 17:01 | Emergency (ER) | payer MEDICARE, BC ==
[2024-07-14 17:35] LABS: BASOPHILS ABSOLUTE AUTO 0.1 x10^3/uL (0.0-0.2); BASOPHILS PERCENT AUTO 0.4 % (0.2-1.2); EOSINOPHILS ABSOLUTE AUTO 0.3 x10^3/uL (0.0-0.5); EOSINOPHILS PERCENT AUTO 2.4 % (0.0-4.0); HEMATOCRIT 47.5 % (40.0-52.0); HEMOGLOBIN 16.4 g/dL (14.0-18.0); IMMATURE GRAN ABSOLUTE AUTO 0.03 x10^3/uL (0.00-0.07); LYMPHOCYTES ABSOLUTE AUTO 2.2 x10^3/uL (1.0-4.8); LYMPHOCYTES PERCENT AUTO 17.9 % (25.0-50.0); MEAN CORPUSCULAR HEMOGLOBIN 30.9 pg (26.0-32.0); MEAN CORPUSCULAR HGB CONC 34.5 g/dL (32.0-36.0); MEAN CORPUSCULAR VOLUME 89.6 fL (78.0-93.0); MONOCYTES ABSOLUTE AUTO 1.3 x10^3/uL (0.0-0.8); MONOCYTES PERCENT AUTO 11.1 % (2.0-11.0); NEUTROPHILS ABSOLUTE AUTO 8.2 x10^3/uL (1.8-7.7); PLATELET COUNT,PLT 271 x10^3/uL (130-400)
[2024-07-14] MEDS: Morphine 4 MG/ML Syringe IVPUSH ONE (17:50)
[2024-07-14 17:52] LABS: A/G RATIO 1.05; ALANINE AMINOTRANSFERASE,ALT 42 U/L (16-63); ALBUMIN 3.9 g/dL (3.4-5.0); ALKALINE PHOSPHATASE 86 U/L (46-116); ASPARTATE AMNIOTRANSFERASE,AST 27 U/L (15-37); BILIRUBIN TOTAL 0.5 mg/dL (0.2-1.0); BLOOD UREA NITROGEN,BUN 19 mg/dL (7-18); CALCIUM 9.4 mg/dL (8.5-10.1); CARBON DIOXIDE,CO2 25 mmol/L (21-32); CHLORIDE,CL 104 mmol/L (98-107); CREATININE 1.3 mg/dL (0.70-1.30); GLUCOSE RANDOM 118 mg/dL (70-99); LIPASE 74 U/L (19-71); PROTEIN TOTAL,TP 7.6 g/dL (6.4-8.2); SODIUM,NA 139 mmol/L (136-145)
[2024-07-14 17:53] LABS: ESTIMATED GFR 60 mL/min (>=60)
[2024-07-14 18:39] LABS: APPEARANCE,URINE CLEAR (CLEAR); BILIRUBIN,URINE NEGATIVE (NEGATIVE); COLOR,URINE YELLOW (YELLOW); GLUCOSE,URINE NEGATIVE (NEGATIVE); KETONES,URINE NEGATIVE (NEGATIVE); LEUKOCYTE ESTERASE,URINE NEGATIVE (NEGATIVE); NITRITE,URINE NEGATIVE (NEGATIVE); OCCULT BLOOD,URINE NEGATIVE (NEGATIVE); PROTEIN,URINE NEGATIVE (NEGATIVE); UROBILINOGEN,URINE 0.2 EU/dL (0.2)
[2024-07-14] MEDS: Iopamidol 612 MG/ML 100 ML Bottle IVPUSH ONE (18:40)
== END 2024-07-14 19:26 | disposition home or self-care (01) ==
LOC: VM.ED 17:01
DX: R10.84 Generalized abdominal pain (principal); I10 Essential (primary) hypertension; E78.00 Pure hypercholesterolemia, unspecified; K21.9 Gastro-esophageal reflux disease without esophagitis; Z79.899 Other long term (current) drug therapy; Z79.82 Long term (current) use of aspirin
CPT/HCPCS: 36415; 74019; 74177; 80053; 81003; 83690; 85025; 96374; 99284; J2270; Q9967

== ENCOUNTER 2024-07-16 15:10 | Observation (INO) | payer MEDICARE, BC ==
[2024-07-16] MEDS ORDERED: Naloxone 0.4 MG/ML SDV IVPUSH PRN (16:41)
[2024-07-16] MEDS ORDERED: Ondansetron 4 MG Tab.DIS PO PRN (16:48)
[2024-07-16] MEDS ORDERED: LORazepam 2 MG/ML SDV IVPUSH PRN (16:52)
[2024-07-16] MEDS: Morphine 2 MG/ML SYRINGE IVPUSH PRN (17:07)
[2024-07-16 17:29] LABS: HEMATOCRIT 46.4 % (40.0-52.0); HEMOGLOBIN 16.6 g/dL (14.0-18.0); MEAN CORPUSCULAR HEMOGLOBIN 31.5 pg (26.0-32.0); MEAN CORPUSCULAR HGB CONC 35.8 g/dL (32.0-36.0); PLATELET COUNT,PLT 263 x10^3/uL (130-400); RED BLOOD CELL COUNT 5.27 x10^6/uL (4.5-6.0); WHITE BLOOD CELL COUNT,WBC 12.5 x10^3/uL (4.0-10.0)
[2024-07-16 17:38] LABS: BAND PERCENT MAN 2 % (0-6); LYMPHOCYTES ABSOLUTE MAN 2.6 x10^3/uL (1.0-4.8); LYMPHOCYTES PERCENT MAN 21 % (25-50); MONOCYTES ABSOLUTE MAN 1.4 x10^3/uL (0.0-0.8); MONOCYTES PERCENT MAN 11 % (2-11); NEUTROPHILS ABSOLUTE MAN 8.5 x10^3/uL (1.8-7.7); PLATELET COUNT ESTIMATE ADEQUATE; SEG NEUTROPHILS PERCENT MAN 66 % (50-80)
[2024-07-16 17:48] LABS: A/G RATIO 1.08; ALANINE AMINOTRANSFERASE,ALT 47 U/L (16-63); ALBUMIN 3.9 g/dL (3.4-5.0); ALKALINE PHOSPHATASE 86 U/L (46-116); ASPARTATE AMNIOTRANSFERASE,AST 23 U/L (15-37); BILIRUBIN TOTAL 0.6 mg/dL (0.2-1.0); BLOOD UREA NITROGEN,BUN 21 mg/dL (7-18); CALCIUM 9.1 mg/dL (8.5-10.1); CARBON DIOXIDE,CO2 20 mmol/L (21-32); CHLORIDE,CL 105 mmol/L (98-107); CREATININE 1.4 mg/dL (0.70-1.30); EST CRCL DRUG DOSING (CG) 43.32 mL/min; GLUCOSE RANDOM 134 mg/dL (70-99); LIPASE 75 U/L (19-71); POTASSIUM,K 3.9 mmol/L (3.5-5.1); PROTEIN TOTAL,TP 7.5 g/dL (6.4-8.2); SODIUM,NA 141 mmol/L (136-145)
[2024-07-16 17:49] LABS: ANION GAP 19.9 mmol/L (5-15); C-REACTIVE PROTEIN < 0.50 mg/dL (<=0.50); ESTIMATED GFR 54 mL/min (>=60)
[2024-07-16] MEDS: Pantoprazole 40 MG Tab.CR PO SCH (19:39)
[2024-07-16] MEDS: Famotidine 20 MG Tab PO SCH (20:45)
[2024-07-16] MEDS: QUEtiapine 25 MG Tab PO SCH (20:45)
[2024-07-16] MEDS: ClonazePAM 0.5 MG Tab PO SCH (20:45)
[2024-07-16] MEDS: busPIRone 5 MG Tab PO SCH (20:45)
[2024-07-16] MEDS: Metoprolol Succinate 25 MG Tab.ER PO SCH (20:46)
[2024-07-16] MEDS: Nortriptyline 10 MG Cap PO SCH (20:46)
[2024-07-16] MEDS: Polyethylene Glycol 3350 Powder 17 GM Packet PO SCH (20:53)
[2024-07-16] MEDS: Lactulose Soln 10 GM/15 ML 30 ML UD Cup PO SCH (20:53)
[2024-07-17] MEDS: Sodium Chloride 0.9% 1,000 ML IV SCH (01:34)
[2024-07-17 06:59] LABS: BASOPHILS PERCENT AUTO 0.4 % (0.2-1.2); EOSINOPHILS ABSOLUTE AUTO 0.3 x10^3/uL (0.0-0.5); EOSINOPHILS PERCENT AUTO 2.4 % (0.0-4.0); HEMATOCRIT 47.4 % (40.0-52.0); HEMOGLOBIN 16.3 g/dL (14.0-18.0); IMMATURE GRAN ABSOLUTE AUTO 0.03 x10^3/uL (0.00-0.07); LYMPHOCYTES ABSOLUTE AUTO 3.3 x10^3/uL (1.0-4.8); LYMPHOCYTES PERCENT AUTO 30.6 % (25.0-50.0); MEAN CORPUSCULAR HGB CONC 34.4 g/dL (32.0-36.0); MEAN CORPUSCULAR VOLUME 90.3 fL (78.0-93.0); MONOCYTES ABSOLUTE AUTO 1.4 x10^3/uL (0.0-0.8); MONOCYTES PERCENT AUTO 12.9 % (2.0-11.0); NEUTROPHILS ABSOLUTE AUTO 5.7 x10^3/uL (1.8-7.7); NEUTROPHILS PERCENT AUTO 53.4 % (50.0-80.0); PLATELET COUNT,PLT 242 x10^3/uL (130-400); RED BLOOD CELL COUNT 5.25 x10^6/uL (4.5-6.0); WHITE BLOOD CELL COUNT,WBC 10.6 x10^3/uL (4.0-10.0)
[2024-07-17 07:17] LABS: CALCIUM 8.7 mg/dL (8.5-10.1); CREATININE 1.3 mg/dL (0.70-1.30); EST CRCL DRUG DOSING (CG) 46.65 mL/min; POTASSIUM,K 4.3 mmol/L (3.5-5.1)
[2024-07-17 07:21] LABS: ANION GAP 15.3 mmol/L (5-15)
[2024-07-17] MEDS: Rosuvastatin 20 MG Tab PO SCH (08:33)
[2024-07-17] MEDS: Sertraline 50 MG Tab PO SCH (08:33)
[2024-07-17] MEDS: Clopidogrel 75 MG Tab PO SCH (08:33)
[2024-07-17] MEDS: ClonazePAM 0.5 MG Tab PO SCH (08:34)
[2024-07-17] MEDS: Iopamidol 612 MG/ML 100 ML Bottle IVPUSH ONE (15:26)
[2024-07-18 11:05] LABS: BASOPHILS PERCENT AUTO 0.4 % (0.2-1.2); EOSINOPHILS ABSOLUTE AUTO 0.3 x10^3/uL (0.0-0.5); EOSINOPHILS PERCENT AUTO 2.8 % (0.0-4.0); HEMATOCRIT 46.7 % (40.0-52.0); IMMATURE GRAN ABSOLUTE AUTO 0.02 x10^3/uL (0.00-0.07); LYMPHOCYTES ABSOLUTE AUTO 2.7 x10^3/uL (1.0-4.8); LYMPHOCYTES PERCENT AUTO 28.2 % (25.0-50.0); MEAN CORPUSCULAR HEMOGLOBIN 31.5 pg (26.0-32.0); MEAN CORPUSCULAR HGB CONC 34.3 g/dL (32.0-36.0); MEAN CORPUSCULAR VOLUME 91.9 fL (78.0-93.0); MONOCYTES PERCENT AUTO 10.5 % (2.0-11.0); NEUTROPHILS ABSOLUTE AUTO 5.5 x10^3/uL (1.8-7.7); NEUTROPHILS PERCENT AUTO 57.9 % (50.0-80.0); PLATELET COUNT,PLT 244 x10^3/uL (130-400); RED BLOOD CELL COUNT 5.08 x10^6/uL (4.5-6.0); WHITE BLOOD CELL COUNT,WBC 9.6 x10^3/uL (4.0-10.0)
[2024-07-18 11:36] LABS: A/G RATIO 1.12; ALANINE AMINOTRANSFERASE,ALT 33 U/L (16-63); ALBUMIN 3.7 g/dL (3.4-5.0); ALKALINE PHOSPHATASE 85 U/L (46-116); ANION GAP 16.9 mmol/L (5-15); ASPARTATE AMNIOTRANSFERASE,AST 21 U/L (15-37); BILIRUBIN TOTAL 0.6 mg/dL (0.2-1.0); BLOOD UREA NITROGEN,BUN 10 mg/dL (7-18); C-REACTIVE PROTEIN < 0.50 mg/dL (<=0.50); CALCIUM 8.6 mg/dL (8.5-10.1); CARBON DIOXIDE,CO2 22 mmol/L (21-32); CHLORIDE,CL 107 mmol/L (98-107); CHOLESTEROL HDL 35 mg/dL (40-59); CHOLESTEROL LDL CALCULATED 64 mg/dL (0-130); CHOLESTEROL TOTAL 115 mg/dL (0-199); CREATININE 1.2 mg/dL (0.70-1.30); EST CRCL DRUG DOSING (CG) 50.54 mL/min; ESTIMATED GFR 65 mL/min (>=60); GLUCOSE RANDOM 107 mg/dL (70-99); LIPASE 75 U/L (19-71); POTASSIUM,K 3.9 mmol/L (3.5-5.1); SODIUM,NA 142 mmol/L (136-145); TRIGLYCERIDES 82 mg/dL (0-149)
[2024-07-19 08:33] LABS: BASOPHILS ABSOLUTE AUTO 0.1 x10^3/uL (0.0-0.2); BASOPHILS PERCENT AUTO 0.5 % (0.2-1.2); EOSINOPHILS ABSOLUTE AUTO 0.3 x10^3/uL (0.0-0.5); HEMATOCRIT 45.4 % (40.0-52.0); HEMOGLOBIN 16.2 g/dL (14.0-18.0); IMMATURE GRAN ABSOLUTE AUTO 0.02 x10^3/uL (0.00-0.07); LYMPHOCYTES ABSOLUTE AUTO 2.5 x10^3/uL (1.0-4.8); MEAN CORPUSCULAR HEMOGLOBIN 31.9 pg (26.0-32.0); MEAN CORPUSCULAR HGB CONC 35.7 g/dL (32.0-36.0); MEAN CORPUSCULAR VOLUME 89.4 fL (78.0-93.0); MONOCYTES ABSOLUTE AUTO 1.2 x10^3/uL (0.0-0.8); MONOCYTES PERCENT AUTO 11.1 % (2.0-11.0); NEUTROPHILS ABSOLUTE AUTO 6.7 x10^3/uL (1.8-7.7); NEUTROPHILS PERCENT AUTO 62.2 % (50.0-80.0); PLATELET COUNT,PLT 216 x10^3/uL (130-400); RED BLOOD CELL COUNT 5.08 x10^6/uL (4.5-6.0); WHITE BLOOD CELL COUNT,WBC 10.8 x10^3/uL (4.0-10.0)
[2024-07-19 08:53] LABS: A/G RATIO 1.06; ALBUMIN 3.5 g/dL (3.4-5.0); ANION GAP 14.1 mmol/L (5-15); BILIRUBIN TOTAL 0.6 mg/dL (0.2-1.0); CREATININE 1.2 mg/dL (0.70-1.30); EST CRCL DRUG DOSING (CG) 50.54 mL/min; POTASSIUM,K 4.1 mmol/L (3.5-5.1); PROTEIN TOTAL,TP 6.8 g/dL (6.4-8.2)
== END 2024-07-19 10:55 | disposition other institution (70) ==
LOC: VM.MS 15:10
PROVIDERS: ADMIT Internal Medicine; ATTEND Internal Medicine
DX: K58.1 Irritable bowel syndrome with constipation (principal); R10.84 Generalized abdominal pain; I25.10 Atherosclerotic heart disease of native coronary artery without angina pectoris; K21.9 Gastro-esophageal reflux disease without esophagitis; F41.9 Anxiety disorder, unspecified; N28.9 Disorder of kidney and ureter, unspecified; Z79.82 Long term (current) use of aspirin; Z79.899 Other long term (current) drug therapy; Z87.891 Personal history of nicotine dependence
CPT/HCPCS: 36415; 74160; 80048; 80053; 80061; 83690; 84484; 85007; 85025; 85027; 86140; 96361; 96374; 96376; 99232; 99238; A9270-GY; G0378; J2270; J7030; Q9967

== ENCOUNTER 2024-11-15 09:30 | Emergency (ER) | payer MEDICARE, BC | END 2024-11-15 10:07 | disposition home or self-care (01) | LOC: VM.ED 09:30 | DX: K22.719 Barrett's esophagus with dysplasia, unspecified (principal); I10 Essential (primary) hypertension; I25.10 Atherosclerotic heart disease of native coronary artery without angina pectoris; E78.00 Pure hypercholesterolemia, unspecified; Z79.899 Other long term (current) drug therapy; Z79.82 Long term (current) use of aspirin | CPT/HCPCS: 99284 ==

== ENCOUNTER 2025-01-14 11:15 | Day surgery (SDC) | payer MEDICARE, BC ==
[2025-01-14] MEDS: Lactated Ringers 1,000 ML IV SCH (11:25)
[2025-01-14] MEDS: Midazolam 1 MG/ML 2 ML SDV IVPUSH PRN (11:26)
[2025-01-14] MEDS ORDERED: Midazolam 1 MG/ML 2 ML SDV ONE (11:28)
[2025-01-14] MEDS ORDERED: fentaNYL 100 MCG/2 ML SDV ONE (11:28)
[2025-01-14] MEDS ORDERED: Propofol 200 MG/20 ML SDV ONE ×2 (11:28→13:05)
[2025-01-14] MEDS ORDERED: Lidocaine 4% 5 ML Amp ONE (12:10)
[2025-01-14] MEDS ORDERED: ePHEDrine 50 MG/ML SDV ONE (12:17)
[2025-01-14] MEDS: Ondansetron 4 MG/2 ML SDV IVPUSH ONE (13:38)
== END 2025-01-14 14:46 | disposition home or self-care (01) ==
LOC: VM.SDS 11:15
PROVIDERS: ATTEND Family Medicine
DX: K63.5 Polyp of colon (principal); K64.9 Unspecified hemorrhoids; Z86.0100 Personal history of colon polyps, unspecified; K44.9 Diaphragmatic hernia without obstruction or gangrene; K21.9 Gastro-esophageal reflux disease without esophagitis; I25.10 Atherosclerotic heart disease of native coronary artery without angina pectoris; E78.5 Hyperlipidemia, unspecified; F41.9 Anxiety disorder, unspecified; Z79.899 Other long term (current) drug therapy
CPT/HCPCS: 88305; J2250; J2405; J2704; J3010; J3490; J7120